=== PATIENT | male | born 1940 | race Caucasian/White ===

== ENCOUNTER 2016-12-29 08:26 | Observation (INO) | payer OTHER ==
[2016-12-29] VITALS (8 sets, daily range): BP systolic 112–172; BP diastolic 53–74; PULSE 51–54; TEMP 36.4–36.7; O2SAT 96–98; Ht 170.2 cm; Wt 93.0 kg
[~2016-12-29] VITALS: Ht 170.2 cm; Wt 93.0 kg
[~2016-12-29 08:26] MED LIST: ASPEC81 PO; CHOL100010 PO; CRD200 PO; CRD4 PO; FIBER PO; METO25TA3 PO; MULT-190 PO; NTRGSL/4 UT; PRLSR20 PO; RIVA1TAB4 PO; ROSU40TA PO; SAW160TA PO; STLS PO
--- NOTE | 2016-12-29 08:42 | EMERGENCY ROOM VISIT NOTE ---
History Report prepared by Jess: Lisa Guerra Under the Supervision of: Dr. Jack Drake M.D. First contact with patient: 08:29 Stated Complaint: CHEST PAIN History of Present Illness The patient is a 76 year old male who presents to the Emergency Room via ambulance with complaints of an episode of chest discomfort that began this morning around 0600. The pain did not radiate. Nothing seemed to make it better or worse. He took his blood pressure and his systolic reached up to 206. He also complains of feeling generally weak. He did not feel his heart racing. En route to the emergency room, he was given aspirin and Nitro. Currently, he does not have any pain. He feels that the Nitro may have improved his pain. He states that he was exerting himself yesterday and did not notice any chest pain or unusual symptoms. The patient has a history of a cardiac stent. His symptoms at that time included decreased energy. His symptoms did not feel the same as today. He is not on a blood thinner. He has a history of a-fib but does not feel like he was in an irregular rhythm today. He denies any recent blood loss. Denies lightheadedness, dizziness, shortness of breath, cough, nausea, vomiting , diarrhea, abdominal pain, or other complaints. He does not have a personal history of blood clots. Source of History: patient Onset: this morning around 0600 Position: chest Timing: other (episode) Modifying Factors (Relieving): other (Nitro) Associated Symptoms: + weakness, No SOB, No abdominal pain, No cough, No diarrhea, No nausea, No vomiting Review of Systems See HPI for pertinent positives & negatives. A total of 10 systems reviewed and were otherwise negative. Past Medical & Surgical Medical Problems: (1) BENIGN HYPERTENSION (2) Chest discomfort (3) CORONARY ATHEROSCLEROSIS OF [place] CORONARY VESSEL (4) COUGH (5) DIVERTICULOSIS COLON (W/O MENT OF HEMORRHAGE) (6) ESOPHAGEAL REFLUX (7) HISTORY OF TOBACCO USE (8) HYPERLIPIDEMIA NEC/NOS (9) HYPERTROPHY (BENIGN) OF PROSTATE W/O URINARY OBST & OTH LUTS (10) PROSTATITIS NOS (11) Status post insertion of drug-eluting stent into left anterior descending ( LAD) artery (12) Substernal discomfort (13) UMBILICAL HERNIA (14) UNILAT INGUINAL HERNIA Old medical records were reviewed. Nurse's notes were reviewed and I agree with. Family History Diabetes mellitus Social History Smoking Status: Former Smoker Alcohol Use: none Drug Use: none Marital Status: Housing Status: lives with significant other Occupation Status: retired Current/Historical Medications Scheduled Amiodarone HCl (Amiodarone HCl), 200 MG PO Q2D Aspirin (Aspirin), 81 MG PO HS Cholecalciferol (D 1000), 1,000 INTER.UNIT PO BID Doxazosin Mesylate (Doxazosin Mesylate), 4 MG PO DAILY Fiber Laxative (Fiber Laxative), 1 DOSE PO qam/pm Nitroglycerin (Nitrostat), 0.4 MG UT PRN Ocuvite Preservision (Ocuvite Preservision), 1 TAB PO DAILY Omeprazole (Prilosec), 20 MG PO DAILY Rosuvastatin Calcium (Crestor), 20 MG PO Q2D Saw [place] (Serenoa Repens) (Saw [place]), 160 MG PO HS Sennosides-Docusate Sodium (Stool Softener), 1 TAB PO BID Allergies Coded Allergies: Sulfa Antibiotics (Verified Allergy, Intermediate, RASH, 12/29/16) Sulfamethoxazole w/Trimethoprim (Verified Allergy, Intermediate, RASH, ) Azithromycin (Verified Adverse Reaction, Mild, UPSET STOMACH, 12/29/16) Rivaroxaban (Verified Adverse Reaction, Mild, SHORTNESS OF BREATH, 12/29/16 ) dizziness Physical Exam Vital Signs Date Time Temp Pulse Resp B/P Pulse Ox O2 Delivery O2 Flow Rate FiO2 12/29/16 12:00 52 20 170/91 95 Room Air 12/29/16 10:10 46 16 159/74 95 Room Air 12/29/16 09:21 49 12/29/16 09:13 49 16 145/83 95 Room Air 12/29/16 08:26 99 Room Air 12/29/16 08:26 36.5 62 14 166/79 99 Room Air 12/29/16 08:26 99 Room Air Physical Exam General: Non-ill appearing older male. Well developed well nourished in no acute distress, breathing comfortably on room air. Normal speech HEENT: Normal cephalic atraumatic. Pupils are equal round and reactive to light. Extraocular movements are intact. Oropharynx is pink with moist mucous membranes. No swelling of the mouth lips or tongue. Neck: Supple with a midline trachea. No meningeal signs or stiffness, no JVD or bruits. No Stridor. Chest: Clear to auscultation bilaterally. No wheezes or rhonchi. No increased work of breathing. Heart: regular rate and rhythm. Abdomen: Soft nontender, nondistended without rebound guarding or rigidity. Extremities: No cyanosis clubbing or edema. No calf tenderness or assymetry Spine/Back. Non tender to palpation. No CVA tenderness Skin: Good turgor without rashes. Neurologic exam: Cranial nerves two through 12 are intact. Motor and sensation are intact and symmetrical throughout. Medical Decision & Procedures ER Provider Diagnostic Interpretation: Radiology results as stated below per my review and radiologist interpretation: CHEST ONE VIEW PORTABLE CLINICAL HISTORY: Atypical chest pain COMPARISON STUDY: 08/16/2015 FINDINGS: The cardiac and mediastinal contours are normal. There is no evidence of focal pulmonary consolidation. There is no evidence of failure. No pleural effusions are visualized.[ IMPRESSION: No active disease in the chest. Electronically signed by: Waqas Pedraza M.D. 12/29/2016 8:55 AM Dictated Date/Time: 12/29/2016 8:54 AM Laboratory Results 12/29/16 09:00 Red Blood Count 4.36, Mean Corpuscular Volume 89.0, Mean Corpuscular Hemoglobin 30.3, Mean Corpuscular Hemoglobin Concent 34.0, Mean Platelet Volume 10.3, Neutrophils (%) (Auto) 75.8, Lymphocytes (%) (Auto) 15.8, Monocytes (%) (Auto) 5.1, Eosinophils (%) (Auto) 2.5, Basophils (%) (Auto) 0.4, Neutrophils # (Auto) 4.17, Lymphocytes # (Auto) 0.87, Monocytes # (Auto) 0.28, Eosinophils # (Auto) 0.14, Basophils # (Auto) 0.02 12/29/16 09:00 Test 12/29/16 09:00 12/29/16 09:10 White Blood Count 5.50 K/uL (4.8-10.8) Red Blood Count 4.36 M/uL (4.7-6.1) Hemoglobin 13.2 g/dL (14.0-18.0) Hematocrit 38.8 % (42-52) Mean Corpuscular Volume 89.0 fL (80-100) Mean Corpuscular Hemoglobin 30.3 pg (25-34) Mean Corpuscular Hemoglobin Concent 34.0 g/dl (32-36) Platelet Count 184 K/uL (130-400) Mean Platelet Volume 10.3 fL (7.4-10.4) Neutrophils (%) (Auto) 75.8 % Lymphocytes (%) (Auto) 15.8 % Monocytes (%) (Auto) 5.1 % Eosinophils (%) (Auto) 2.5 % Basophils (%) (Auto) 0.4 % Neutrophils # (Auto) 4.17 K/uL (1.4-6.5) Lymphocytes # (Auto) 0.87 K/uL (1.2-3.4) Monocytes # (Auto) 0.28 K/uL (0.11-0.59) Eosinophils # (Auto) 0.14 K/uL (0-0.5) Basophils # (Auto) 0.02 K/uL (0-0.2) RDW Standard Deviation 46.1 fL (36.4-46.3) RDW Coefficient of Variation 14.1 % (11.5-14.5) Immature Granulocyte % (Auto) 0.4 % Immature Granulocyte # (Auto) 0.02 K/uL (0.00-0.02) Prothrombin Time 10.8 SECONDS (9.0-12.0) Prothromb Time International Ratio 1.0 (0.9-1.1) Activated Partial Thromboplast Time 28.9 SECONDS (21.0-31.0) Partial Thromboplastin Ratio 1.1 Anion Gap 5.0 mmol/L (3-11) Est Creatinine Clear Calc Drug Dose 58.2 ml/min Estimated GFR () 75.2 Estimated GFR (Non- 64.9 BUN/Creatinine Ratio 18.6 (10-20) Calcium Level 8.1 mg/dl (8.5-10.1) Total Bilirubin 0.3 mg/dl (0.2-1) Direct Bilirubin < 0.1 mg/dl (0-0.2) Aspartate Amino Transf (AST/SGOT) 12 U/L (15-37) Alanine Aminotransferase (ALT/SGPT) 24 U/L (12-78) Alkaline Phosphatase 60 U/L (45-117) Total Creatine Kinase 185 U/L (39-308) Creatine Kinase MB 3.2 ng/ml (0.5-3.6) Creatine Kinase MB Ratio 1.7 (0-3.0) Total Protein 6.6 gm/dl (6.4-8.2) Albumin 3.5 gm/dl (3.4-5.0) Lipase 163 U/L (73-393) Bedside Troponin I 0.000 ng/ml (0-0.045) Laboratory studies as stated above per my review. ECG Indication: chest pain Rate (beats per minute): 57 Rhythm: sinus bradycardia Findings: no acute ischemic change, no ectopy Comparison ECG Date: 08/16/15 Change: no significant change ED Course 0831: Past medical records reviewed. The patient was evaluated in room B11, and a complete history and physical examination were performed. 1038: Upon reevaluation, the patient is resting comfortably. I discussed the results and treatment plan with the patient. He verbalized agreement of the treatment plan. The patient will be evaluated for further management. 1102: I discussed the case with Dr. Bill PUGH Hospitalist. The patient will be evaluated for further management. Medical Decision Differentials include acute coronary syndrome, arrhythmia, CHF, electrolyte or metabolic abnormality. This patient comes in as described above. He was placed in room B 11. He has a history cardiac disease. He has had some vague cardiac type symptoms. IV access established EKG was obtained multiple blood testing was obtained. EKG does not show any definite ischemic changes or ectopy. He has received aspirin and nitroglycerin prior to arrival. He was reassessed frequently. He remained pain-free while he was in the emergency department. His EKG does not suggest acute coronary syndrome or arrhythmia. Initial cardiac enzymes are normal. Chest x-ray does not show just heart failure pneumonia or pneumothorax. He has no acute electrode or metabolic abnormalities. Given his cardiac history with having a stent in the and having some chest pain that was relieved by nitroglycerin, I do think he needs to be admitted to rule out acute coronary event. I did consult the [facility] hospitalist group. They saw on the ER will admit him for these measures. Consults Time Called: 1043 Consulting Physician: Dr. Bill PUGH Hospitalist Returned Call: 1102 I discussed the case with him. The patient will be evaluated for further management. Impression Primary Impression: Precordial chest pain Additional Impression: Unstable angina Scribe Attestation The scribe's documentation has been prepared under my direction and personally reviewed by me in its entirety. I confirm that the note above accurately reflects all work, treatment, procedures, and medical decision making performed by me. Departure Information Dispostion Being Evaluated By Hospitalist Referrals Yuliya Washington, BharathiN.P (PCP) Problem Qualifiers
--- NOTE | 2016-12-29 08:57 | DIAGNOSTIC IMAGING REPORT ---
CHEST ONE VIEW PORTABLE CLINICAL HISTORY: Atypical chest pain COMPARISON STUDY: 08/16/2015 FINDINGS: The cardiac and mediastinal contours are normal. There is no evidence of focal pulmonary consolidation. There is no evidence of failure. No pleural effusions are visualized.[ IMPRESSION: No active disease in the chest. Electronically signed by: Waqas Pedraza M.D. 12/29/2016 8:55 AM Dictated Date/Time: 12/29/2016 8:54 AM
[2016-12-29 09:20] LABS: BASO % 0.4 %; BASO ABS # 0.02 K/uL (0-0.2); COMPLETE YES; EOS % 2.5 %; HEMATOCRIT 38.8 % (42-52); IG% 0.4 %; LYMPH % 15.8 %; LYMPH ABS # 0.87 K/uL (1.2-3.4); MEAN CORPUSCULAR HEMOGLOBIN 30.3 pg (25-34); MEAN PLATELET VOLUME 10.3 fL (7.4-10.4); MONO % 5.1 %; NEUT % 75.8 %; PLATELET COUNT 184 K/uL (130-400); RED BLOOD COUNT 4.36 M/uL (4.7-6.1)
[2016-12-29] MEDS ORDERED: CHOL100041 PO (09:23)
[2016-12-29] MEDS ORDERED: DOXA1TAB86 PO (09:23)
[2016-12-29] MEDS ORDERED: ASPI-461 PO (09:23)
[2016-12-29] MEDS ORDERED: SENNTAB23 PO (09:23)
[2016-12-29 09:31] LABS: PARTIAL THROMBOPLASTIN RATIO 1.1; PROTHROMBIN TIME (PATIENT) 10.8 SECONDS (9.0-12.0)
[2016-12-29 09:44] LABS: BLOOD UREA NITROGEN 20 mg/dl (7-18); BUN/CREATININE RATIO 18.6 (10-20); CALCIUM 8.1 mg/dl (8.5-10.1); CARBON DIOXIDE 31 mmol/L (21-32); CHLORIDE 108 mmol/L (98-107); GLUCOSE 119 mg/dl (70-99); SODIUM 144 mmol/L (136-145)
[2016-12-29 09:50] LABS: ALKALINE PHOSPHATASE 60 U/L (45-117); ALT/SGPT 24 U/L (12-78); AST/SGOT 12 U/L (15-37); CKMB/CK RATIO 1.7 (0-3.0)
[2016-12-29] MEDS: SODIUM CHLORIDE 0.9% 1000ML 1,000 ML IV SCH (11:33)
[2016-12-29] MEDS ORDERED: POLYETHYLENE (MIRALAX) 17 GM PACK PO PRN (11:45)
[2016-12-29] MEDS ORDERED: ONDANSETRON INJ 2 MG/ML 2 ML VIAL IV PRN (11:45)
[2016-12-29] MEDS ORDERED: ACETAMINOPHEN 325 MG TAB PO PRN (11:45)
[2016-12-29] MEDS ORDERED: NITROGLYCERIN 0.4 MG SL PER TAB CHARGE SL PRN (11:45)
--- NOTE | 2016-12-29 12:02 | History and Physical ---
History & Physical Date & Time of Service: Dec 29, 2016 at 11:42 Chief Complaint: Chest Pain Primary Care Physician: Deborah Mercer M.D. History of Present Illness Source: patient This is a 76 yo M with PMHx of hypertension, CAD, history of A. fib with RVR, hyperlipidemia, remote smoking history of 1ppd x 8 years, quit 50 years ago, diverticular disease, vitamin D deficiency, macular degeneration, BPH, GERD, umbilical hernia. The patient is status post drug-eluting stent which was placed in the left anterior descending artery in 2007 at [facility]. He previously had stress echocardiograms in 2011 in 2012 which were negative for ischemic changes. The patient presents this morning by himself with a substernal discomfort which began when he woke up at approximately 0500. He was driving a vehicle when he noticed it worsened, when he returned home at approximately 0700 he checked his blood pressure which was 204/78, HR= 58. On recheck 30 minutes later his blood pressure was 206/78, with HR= 73. His symptoms have not seemed to change in that period of time so he called EMS. The patient denies any changes in vision , hearing, shortness of breath, lightheadedness, dizziness. He does associate some nausea with the discomfort. When EMS arrived, he was administered 4 baby aspirin and one nitroglycerin tablet which relieved his symptoms and was brought to the ER. The patient is a fairly active person works at [employer] and was yesterday for several hours, he admits to poor water intake on a regular basis. The patient lives at home with his . He does not require any assistance with ambulation, he does report chronic R hip and knee pain but improves begins walking, and has never required supplemental O2. Past Medical/Surgical History Medical Problems: (1) BENIGN HYPERTENSION Status: Chronic (2) CORONARY ATHEROSCLEROSIS OF [place] CORONARY VESSEL Status: Chronic (3) COUGH Status: Chronic (4) DIVERTICULOSIS COLON (W/O MENT OF HEMORRHAGE) Status: Chronic (5) ESOPHAGEAL REFLUX Status: Chronic (6) HISTORY OF TOBACCO USE Status: Chronic (7) HYPERLIPIDEMIA NEC/NOS Status: Chronic (8) HYPERTROPHY (BENIGN) OF PROSTATE W/O URINARY OBST & OTH LUTS Status: Chronic (9) PROSTATITIS NOS Status: Chronic (10) UMBILICAL HERNIA Status: Chronic (11) UNILAT INGUINAL HERNIA Status: Chronic Family History Diabetes mellitus Social History Smoking Status: Former Smoker Smokeless Tobacco Use: No Alcohol Use: none Drug Use: none Marital Status: Housing status: lives with family Occupational Status: employed Immunizations History of Influenza Vaccine: No History of Tetanus Vaccine?: Yes Tetanus Immunization Date: Jun 08, 2011 History of Pneumococcal: Yes Pneumococcal Date: Jun 08, 2007 History of Hepatitis B Vaccine: No Multi-Drug Resistant Organisms History of MDRO: No Allergies Coded Allergies: Sulfamethoxazole w/Trimethoprim (Verified Allergy, Mild, RASH, 12/29/16) Sulfa Antibiotics (Unverified Allergy, Unknown, ., 12/29/16) Azithromycin (Verified Adverse Reaction, Mild, UPSET STOMACH, 12/29/16) Rivaroxaban (Verified Adverse Reaction, Mild, SHORTNESS OF BREATH, 12/29/16 ) dizziness Home Medications Scheduled Amiodarone HCl (Amiodarone HCl), 200 MG PO Q2D Aspirin (Aspirin), 81 MG PO HS Cholecalciferol (D 1000), 1,000 INTER.UNIT PO BID Doxazosin Mesylate (Doxazosin Mesylate), 4 MG PO DAILY Fiber Laxative (Fiber Laxative), 1 DOSE PO qam/pm Nitroglycerin (Nitrostat), 0.4 MG UT PRN Ocuvite Preservision (Ocuvite Preservision), 1 TAB PO DAILY Omeprazole (Prilosec), 20 MG PO DAILY Rosuvastatin Calcium (Crestor), 20 MG PO Q2D Saw Mercedes (Serenoa Repens) (Saw Mercedes), 160 MG PO HS Sennosides-Docusate Sodium (Stool Softener), 1 TAB PO BID Review of Systems Constitutional: No chills, No fatigue, No fever Eyes: No diplopia, No worsening of vision ENT: No hearing loss, No unusual epistaxis Respiratory: No cough, No dyspnea at rest, No dyspnea on exertion, No shortness of breath Cardiovascular: + chest pain, No orthopnea, No palpitations Abdomen: + nausea, No constipation, No diarrhea, No pain, No vomiting Musculoskeletal: + joint pain (R hip and bilateral knees), No calf pain, No swelling Genitourinary - Male: No dysuria, No hematuria Neurologic: No balance problems, No numbness/tingling Endocrine: No fatigue, No problem reported Integumentary: No itch, No rash Physical Exam Vital Signs Date Time Temp Pulse Resp B/P Pulse Ox O2 Delivery O2 Flow Rate FiO2 12/29/16 10:10 46 16 159/74 95 Room Air 12/29/16 09:21 49 12/29/16 09:13 49 16 145/83 95 Room Air 12/29/16 08:26 99 Room Air 12/29/16 08:26 36.5 62 14 166/79 99 Room Air 12/29/16 08:26 99 Room Air General Appearance: WD/WN, no apparent distress, + obese Head: normocephalic, atraumatic Eyes: PERRL, EOMI ENT: hearing grossly normal, pharynx normal Neck: supple, no JVD Respiratory/Chest: chest non-tender, lungs clear, no respiratory distress, no accessory muscle use Cardiovascular: regular rate, rhythm, no murmur, normal peripheral pulses, + bradycardia Abdomen/GI: normal bowel sounds, non tender, soft, + pertinent finding ( umbilical hernia) Back: normal inspection Extremities/Musculoskelatal: normal inspection, no calf tenderness, no pedal edema Neurologic/Psych: no motor/sensory deficits, normal mood/affect, oriented x 3 Skin: normal color, warm/dry Diagnostics Laboratory Results Results Past 24 Hours Test 12/29/16 08:39 12/29/16 09:00 12/29/16 09:10 Range/Units Creatine Kinase MB Ratio 1.7 0-3.0 White Blood Count 5.50 4.8-10.8 K/uL Red Blood Count 4.36 4.7-6.1 M/uL Hemoglobin 13.2 14.0-18.0 g/dL Hematocrit 38.8 42-52 % Mean Corpuscular Volume 89.0 80-100 fL Mean Corpuscular Hemoglobin 30.3 25-34 pg Mean Corpuscular Hemoglobin Concent 34.0 32-36 g/dl Platelet Count 184 130-400 K/uL Mean Platelet Volume 10.3 7.4-10.4 fL Neutrophils (%) (Auto) 75.8 % Lymphocytes (%) (Auto) 15.8 % Monocytes (%) (Auto) 5.1 % Eosinophils (%) (Auto) 2.5 % Basophils (%) (Auto) 0.4 % Neutrophils # (Auto) 4.17 1.4-6.5 K/uL Lymphocytes # (Auto) 0.87 1.2-3.4 K/uL Monocytes # (Auto) 0.28 0.11-0.59 K/uL Eosinophils # (Auto) 0.14 0-0.5 K/uL Basophils # (Auto) 0.02 0-0.2 K/uL RDW Standard Deviation 46.1 36.4-46.3 fL RDW Coefficient of Variation 14.1 11.5-14.5 % Immature Granulocyte % (Auto) 0.4 % Immature Granulocyte # (Auto) 0.02 0.00-0.02 K/uL Prothrombin Time 10.8 9.0-12.0 SECONDS Prothromb Time International Ratio 1.0 0.9-1.1 Activated Partial Thromboplast Time 28.9 21.0-31.0 SECONDS Partial Thromboplastin Ratio 1.1 Sodium Level 144 136-145 mmol/L Potassium Level 4.0 3.5-5.1 mmol/L Chloride Level 108 98-107 mmol/L Carbon Dioxide Level 31 21-32 mmol/L Anion Gap 5.0 3-11 mmol/L Blood Urea Nitrogen 20 7-18 mg/dl Creatinine 1.10 0.60-1.40 mg/dl Est Creatinine Clear Calc Drug Dose 58.2 ml/min Estimated GFR () 75.2 Estimated GFR (Non- 64.9 BUN/Creatinine Ratio 18.6 10-20 Random Glucose 119 70-99 mg/dl Calcium Level 8.1 8.5-10.1 mg/dl Total Bilirubin 0.3 0.2-1 mg/dl Direct Bilirubin < 0.1 0-0.2 mg/dl Aspartate Amino Transf (AST/SGOT) 12 15-37 U/L Alanine Aminotransferase (ALT/SGPT) 24 12-78 U/L Alkaline Phosphatase 60 45-117 U/L Total Creatine Kinase 185 39-308 U/L Creatine Kinase MB 3.2 0.5-3.6 ng/ml Total Protein 6.6 6.4-8.2 gm/dl Albumin 3.5 3.4-5.0 gm/dl Lipase 163 73-393 U/L Bedside Troponin I 0.000 0-0.045 ng/ml Diagnostic Radiology [~ rep ct add3]] CHEST ONE VIEW PORTABLE CLINICAL HISTORY: Atypical chest pain COMPARISON STUDY: 08/16/2015 FINDINGS: The cardiac and mediastinal contours are normal. There is no evidence of focal pulmonary consolidation. There is no evidence of failure. No pleural effusions are visualized.[ IMPRESSION: No active disease in the chest. EKG Vent. rate 57 BPM OH interval 182 ms QRS duration 90 ms QT/QTc 438/426 ms P-R-T axes 51 4 30 Sinus bradycardia, no signs of ST wave inversions or ischemic changes noted Impression Assessment and Plan This is a 76 yo M with PMHx of hypertension, CAD, history of A. fib with RVR, hyperlipidemia, remote smoking history of 1ppd x 8 years, quit 50 years ago, diverticular disease, vitamin D deficiency, macular degeneration, BPH, GERD, umbilical hernia. The patient is status post drug-eluting stent which was placed in the left anterior descending artery in 2007 at [facility]. He previously had stress echocardiograms in 2011 and 2012 which were negative for ischemic changes. Patient presents with chest discomfort for chest pain rule out. Chest discomfort History of hypertension History of A. fib with RVR CAD - Admit to telemetry for observation - Patient s/s ALONSO placement in the LAD in 2007. Last 2 stress echos were negative for ischemic changes in 2011 and 2012 - Initial set of troponin and CK-MB are negative, will trend 2 more sets - Ordered stress echocardiogram for tomorrow, NPO after midnight - Continue amiodarone 200 mg every other day, ASA 81 mg daily - Nitro 0.4 sl tab po prn, chest pain - AM EKG and when necessary chest pain - Check a lipid panel - Check hemoglobin A1c Macular degeneration -Continue PASSPORT SUPPORT MANAGER eyedrops BPH - Continue PASSPORT SUPPORT MANAGER Flomax, continue doxazosin 4 mg daily - Patient was taking saw palmetto as an outpatient, not currently on statin therapy GERD - We will change to Protonix 40 mg every morning from omeprazole DVT prophylaxis: Teds, SCDs, Lovenox 40 mg subq CODE STATUS: DO NOT RESUSCITATE Disposition: Patient from home, discharged likely after stress echocardiogram pending results Level of Care Telemetry Advanced Directives Existing Advance Directive: Yes Existing Living Will: Yes Existing Power of Technical Support Technician: Yes Existing Health Care Proxy: Yes Resuscitation Status DO NOT RESUSCITATE VTE Prophylaxis VTE Risk Assessment Done? Y/N: Yes Risk Level: Low Given or contraindicated: Enoxaparin (Lovenox)SQ, T.EYemi. Lida, SCD's
[2016-12-29] MEDS ORDERED: IV FLUIDS COMPLETED PRN (12:30)
[2016-12-29] MEDS ORDERED: LISINOPRIL 20 MG TAB PO ONE (13:15)
[2016-12-29] MEDS ORDERED: NURSING VERBAL MED ORDER ONE (13:30)
[2016-12-29] MEDS ORDERED: ENOXAPARIN 40 MG/0.4 ML SYR SC SCH (21:00)
[2016-12-29] MEDS: DOCUSATE SODIUM/SENNA 50/8.6MG TAB PO SCH (21:03)
[2016-12-29] MEDS: CHOLECALCIFEROL 1000 INTER.UNIT TAB PO SCH (21:04)
[2016-12-30] VITALS (8 sets, daily range): BP systolic 95–192; BP diastolic 57–92; PULSE 54–72; TEMP 36.4–36.8; O2SAT 93–98
[2016-12-30] MEDS: SODIUM CHLORIDE 0.9% 1000ML 1,000 ML IV SCH (01:39)
[2016-12-30 06:06] LABS: BASO % 0.3 %; BASO ABS # 0.03 K/uL (0-0.2); COMPLETE YES; EOS % 2.5 %; HEMATOCRIT 41.1 % (42-52); IG% 0.3 %; LYMPH % 18.9 %; LYMPH ABS # 1.75 K/uL (1.2-3.4); MEAN CELL VOLUME 90.1 fL (80-100); MEAN CORPUSCULAR HEMOGLOBIN 29.8 pg (25-34); MEAN CORPUSCULAR HGB CONC 33.1 g/dl (32-36); MEAN PLATELET VOLUME 10.9 fL (7.4-10.4); MONO % 7.9 %; NEUT % 70.1 %; PLATELET COUNT 221 K/uL (130-400); RED BLOOD COUNT 4.56 M/uL (4.7-6.1); WHITE BLOOD COUNT 9.28 K/uL (4.8-10.8)
[2016-12-30 06:34] LABS: BUN/CREATININE RATIO 15.3 (10-20); CALCIUM 8.4 mg/dl (8.5-10.1); CREATININE 1.2 mg/dl (0.60-1.40); POTASSIUM 3.9 mmol/L (3.5-5.1)
[2016-12-30 06:37] LABS: CHOLESTEROL/HDL RATIO 3.9
[2016-12-30 07:20] LABS: ESTIMATED AVERAGE GLUCOSE 123 mg/dl; HA1C FLAG Normal (Normal)
[2016-12-30] MEDS: CHOLECALCIFEROL 1000 INTER.UNIT TAB PO SCH (07:43)
[2016-12-30] MEDS: DOCUSATE SODIUM/SENNA 50/8.6MG TAB PO SCH (07:43)
--- NOTE | 2016-12-30 08:11 | Family Medicine Progress Note ---
Progress Note Date of Service Dec 30, 2016. Objective Vital Signs Date Time Temp Pulse Resp B/P Pulse Ox O2 Delivery O2 Flow Rate FiO2 12/30/16 07:41 36.4 54 20 174/79 94 12/30/16 04:46 36.6 54 22 176/77 97 Room Air 188/79 12/30/16 04:45 59 192/92 12/30/16 03:51 98 Room Air 12/30/16 00:00 98 Room Air 12/29/16 23:16 36.6 51 18 122/58 98 Room Air 12/29/16 20:00 98 Room Air 12/29/16 18:58 36.7 52 20 112/53 98 12/29/16 16:00 96 Room Air 12/29/16 15:54 36.5 54 20 146/67 96 12/29/16 13:12 36.4 53 16 172/74 98 Room Air 12/29/16 13:00 98 Room Air 12/29/16 13:00 36.4 53 18 172/74 98 Room Air 12/29/16 12:09 97 Room Air 12/29/16 12:00 52 20 170/91 95 Room Air 12/29/16 10:10 46 16 159/74 95 Room Air 12/29/16 09:21 49 12/29/16 09:13 49 16 145/83 95 Room Air 12/29/16 08:26 99 Room Air 12/29/16 08:26 36.5 62 14 166/79 99 Room Air 12/29/16 08:26 99 Room Air Resident Tracking Resident Involvement: Resident Care Provided Care Provided: Adult Hospital Medicine
[2016-12-30] MEDS ORDERED: AMLODIPINE BESYLATE 5 MG TAB PO STA (08:23)
[2016-12-30] MEDS ORDERED: DOXAZosin MESYLATE TAB 4 MG TAB PO SCH (09:00)
[2016-12-30] MEDS ORDERED: LISINOPRIL 20 MG TAB PO SCH (09:00)
[2016-12-30] MEDS ORDERED: CEROVITE ADV FORMULA TAB PO SCH ×2 (09:00)
[2016-12-30] MEDS ORDERED: ASPIRIN 81 MG ECTAB PO SCH (09:00)
[2016-12-30] MEDS ORDERED: AMIODARONE 200 MG TAB PO SCH (09:00)
[2016-12-30] MEDS ORDERED: PANTOprazole SOD 40 MG TAB PO SCH (09:00)
[2016-12-30] MEDS ORDERED: ROSUVASTATIN CALCIUM 20 MG TAB PO SCH (09:00)
--- NOTE | 2016-12-30 11:52 | EXERCISE STRESS ECHO ---
*NOTICE TO RECEIVING [employer] This information is strictly Confidential and protected under [place] law. [place] law prohibits you from making any further disclosure of this information unless further disclosure is expressly permitted by the written consent of the person to whom it pertains or is authorized by law. A general authorization for the release of medical or other information is not sufficient for this purpose. Hospital accepts no responsibility if the information is made available to any other person, INCLUDING THE PATIENT. Interpretation Summary * Name: JOLIE NI Study Date: 12/30/2016 08:49 AM BP: 134/72 mmHg * Patient Location: [facility]\S\N288\S\2 HR: 57 * : 1940 (M/d/yyyy) Gender: Male Height: 67 in * Age: 76 yrs Ethnicity: [place] Weight: 205 lb * Ordering Physician: Rika Hurd * Referring Physician: Self, Referred * Performed By: Kim Abdalla RCS * * Reason For Study: Chest Pain * BSA: 2.0 m2 * The ST segment changes following exercise are suggestive but not diagnostic of ischemia. * Mild concentric left ventricular hypertrophy. * Left ventricular diastolic dysfunction. * Mild left atrial dilatation. * Trace tricuspid and pulmonic regurgitation. * Mildly elevated estimated right ventricular systolic pressure. * Normal resting left ventricular systolic function and wall motion. * This was a normal stress echocardiogram. * The left ventricular ejection fraction increases normally with stress. The left ventricular end-systolic cavity size reduces post-stress (normal response). The left ventricular wall motion with stress is normal. * Exercise capacity is average. * -- Conclusions -- * Aortic valve sclerosis mild, without significant aortic valvular stenosis. Procedure Details * ECHOEX, CPT #[id number] * ECHO COLOR FLOW, CPT #[id number] * ECHO DOPPLER, CPT #[id number] Left Ventricle * The left ventricle is normal in size. * There is mild concentric left ventricular hypertrophy. * Ejection Fraction = 60-65%. * Left ventricular systolic function is normal. * A full diastolic examination was done with clinical findings of Class I diastolic dysfunction. * Resting wall motion: Normal. Stress wall motion: Appropriate increase in Left ventricular systolic function and decrease in cavity size. No stress induced segmental wall motion abnormalities. * The left ventricular ejection fraction increases normally with stress. The left ventricular end-systolic cavity size reduces post-stress (normal response). The left ventricular wall motion with stress is normal. * No regional wall motion abnormalities noted. Right Ventricle * The right ventricle is normal in size and function. * The right ventricular systolic function is normal as assessed by tricuspid annular plane systolic excursion (TAPSE) (normal >1.5 cm). Atria * The left atrium is mildly dilated. * Right atrial size is normal. * No ASD detected; PFO is not assessed. Mitral Valve * The mitral valve is normal. * There is no mitral valve stenosis. * There is no mitral regurgitation noted. Tricuspid Valve * The tricuspid valve is normal. * There is no tricuspid stenosis. * There is trace tricuspid regurgitation. * Right ventricular systolic pressure is elevated at 30-40mmHg. Aortic Valve * The aortic valve is trileaflet. * The aortic valve opens well. * Aortic valve sclerosis mild, without significant aortic valvular stenosis. * Aortic stenosis is absent. * No aortic regurgitation is present. Pulmonic Valve * The pulmonic valve leaflets are thin and pliable; valve motion is normal. * Pulmonic stenosis is absent. * Trace pulmonic valvular regurgitation. Great Vessels * The aortic root is normal size. Pericardium * There is no pericardial effusion. Stress Parameters * Sinus bradycardia * The baseline ECG displays normal ST segments. * 1.25 - 2.[address] depression * The stress portion of this study was personally supervised by the undersigned interpreting physician. * Rest heart rate was '57' BPM. * Rest blood pressure was '134/72' * Maximum heart rate achieved was 121 bpm. * Maximum heart rate was 84 % of maximum age-predicted heart rate. * Maximum blood pressure was '223/46' * Total exercise time was '6:10' * Maximum exercise MET level achieved was '7.2' METS * Maximum treadmill speed was '3.4' miles per hour. * Maximum treadmill elevation was '14'% grade. * Exercise was terminated due to 'fatigue' * The patient exhibited a hypertensive response with stress. * No chest pain during or following exercise. MMode 2D Measurements and Calculations IVSd 1.2 cm IVSs 1.2 cm LVIDd 3.9 cm LVIDs 2.5 cm LVPWd 1.2 cm LVPWs 1.3 cm IVS/LVPW 1.0 FS 35.1 % EDV(Teich) 66.0 ml ESV(Teich) 23.1 ml EF(Teich) 65.1 % EDV(cubed) 59.4 ml ESV(cubed) 16.2 ml EF(cubed) 72.7 % % IVS thick -1.63 % % LVPW thick 7.8 % LV mass(C)d 162.1 grams LV mass(C)dI 79.3 grams/m\S\2 LV mass(C)s 93.0 grams LV mass(C)sI 45.5 grams/m\S\2 CO(Teich) 2.5 l/min CI(Teich) 1.2 l/min/m\S\2 SV(Teich) 42.9 ml SI(Teich) 21.0 ml/m\S\2 CO(cubed) 2.5 l/min CI(cubed) 1.2 l/min/m\S\2 SV(cubed) 43.2 ml SI(cubed) 21.1 ml/m\S\2 Ao root diam 3.2 cm Ao root area 8.2 cm\S\2 ACS 1.4 cm LA dimension 4.3 cm LA/Ao 1.3 LVAd ap4 33.1 cm\S\2 LVLd ap4 8.5 cm EDV(MOD-sp4) 107.0 ml LVAs ap4 16.6 cm\S\2 LVLs ap4 6.8 cm ESV(MOD-sp4) 34.0 ml EF(MOD-sp4) 68.2 % LVAd ap2 33.6 cm\S\2 LVLd ap2 9.0 cm EDV(MOD-sp2) 104.0 ml LVAs ap2 16.1 cm\S\2 LVLs ap2 6.9 cm ESV(MOD-sp2) 32.0 ml EF(MOD-sp2) 69.2 % CO(MOD-sp4) 4.2 l/min CI(MOD-sp4) 2.1 l/min/m\S\2 SV(MOD-sp4) 73.0 ml SI(MOD-sp4) 35.7 ml/m\S\2 CO(MOD-sp2) 4.2 l/min CI(MOD-sp2) 2.0 l/min/m\S\2 SV(MOD-sp2) 72.0 ml SI(MOD-sp2) 35.2 ml/m\S\2 Doppler Measurements and Calculations MV E max jason 67.6 cm/sec MV A max jason 96.3 cm/sec MV E/A 0.70 MV P1/2t max jason 83.8 cm/sec MV P1/2t 68.3 msec MVA(P1/2t) 3.2 cm\S\2 MV dec slope 359.2 cm/sec\S\2 MV dec time 0.26 sec Ao V2 max 160.5 cm/sec Ao max PG 10.3 mmHg Ao max PG (full) 2.0 mmHg LV V1 max PG 8.3 mmHg LV V1 max 144.4 cm/sec PA V2 max 127.6 cm/sec PA max PG 6.5 mmHg PI max jason 180.3 cm/sec PI max PG 13.0 mmHg PI dec slope 125.1 cm/sec\S\2 PI P1/2t 422.0 msec TR max jason 279.9 cm/sec
[2016-12-30] MEDS ORDERED: LOSA50TA6 PO (13:09)
--- NOTE | 2016-12-30 13:13 | Discharge Instructions ---
Discharge Instructions Date of Service Dec 30, 2016. Admission Reason for Admission: Chest Discomfort Discharge Discharge Diagnosis / Problem: chest pain appearing non cardiac Discharge Goals Goal(s): Diagnostic testing Activity Recommendations Activity Limitations: resume your previous activity . Instructions / Follow-Up Instructions / Follow-Up have [place] draw labwork (BMP) next week to follow up on the new blood pressure meds (losartan) follow your blood pressure between daily and twice a day to follow how you adapt to the new med Current Hospital Diet Patient's current hospital diet: AHA Diet (Heart Healthy) Discharge Diet Recommended Diet: Regular Diet Pending Studies Studies pending at discharge: no Laboratory Results Hemoglobin A1c Test 12/30/16 05:18 Range/Units Estimated Average Glucose 123 mg/dl Hemoglobin A1c 5.9 H 4.5-5.6 % Lipid Panel Test 12/30/16 05:18 Range/Units Triglycerides Level 176 H 0-150 mg/dl Cholesterol Level 161 0-200 mg/dl HDL Cholesterol 41 mg/dl Cholesterol/HDL Ratio 3.9 LDL Cholesterol, Calculated 85 mg/dl Medical Emergencies . Who to Call and When: Medical Emergencies: If at any time you feel your situation is an emergency, please call 911 immediately. . Non-Emergent Contact Non-Emergency issues call your: Primary Care Provider . . "Provider Documentation" section prepared by Taye Ram. . VTE Core Measure Inpt VTE Proph given/why not?: Enoxaparin (Lovenox)LOLI TChandan Hilton, SCD's
--- NOTE | 2016-12-30 18:35 | Discharge Summary ---
Discharge Summary Date of Service Dec 30, 2016. Discharge Summary Admission Date: Dec 29, 2016 at 12:03 Discharge Date: Dec 30, 2016 Discharge Disposition: Home Principal Diagnosis: chest pain, possibly related to elevated BP Immunizations: Have You Had Influenza Vaccine: No History of Tetanus Vaccine?: Yes Tetanus Immunization Date: Jun 08, 2011 History of Pneumococcal: Yes Pneumococcal Date: Jun 08, 2007 History of Hepatitis B Vaccine: No Procedures: stress echo w nondiagnostic EKG and negative echo portion for ischemic changes serial cardiac enzymes negative Hemoglobin A1c Test 12/30/16 05:18 Range/Units Estimated Average Glucose 123 mg/dl Hemoglobin A1c 5.9 H 4.5-5.6 % Lipid Panel Test 12/30/16 05:18 Range/Units Triglycerides Level 176 H 0-150 mg/dl Cholesterol Level 161 0-200 mg/dl HDL Cholesterol 41 mg/dl Cholesterol/HDL Ratio 3.9 LDL Cholesterol, Calculated 85 mg/dl Medication Reconciliation New Medications: Losartan Potassium (Cozaar) 50 Mg Tab 1 TAB PO DAILY for 30 Days, #30 TAB 1 Refill Continued Medications: Amiodarone HCl (Amiodarone HCl) 200 Mg Tab 200 MG PO Q2D Aspirin (Aspirin) 81 Mg Tab 81 MG PO HS Cholecalciferol (D 1000) 1,000 Unit Cap 1000 INTER.UNIT PO BID Doxazosin Mesylate (Doxazosin Mesylate) 4 Mg Tab 4 MG PO DAILY Fiber Laxative (Fiber Laxative) Ea 1 DOSE PO qam/pm Nitroglycerin (Nitrostat) 0.4 Mg Tab 0.4 MG UT PRN, 0 Refills Ocuvite Preservision (Ocuvite Preservision) 1 Tab Tab 1 TAB PO DAILY, 0 Refills Omeprazole (Prilosec) 20 Mg Capcr 20 MG PO DAILY, CAP Rosuvastatin Calcium (Crestor) 40 Mg Tab 20 MG PO Q2D [place] ([place]) ([place]) 160 Mg Tab 160 MG PO HS Sennosides-Docusate Sodium (Stool Softener) 1 Tab Tab 1 TAB PO BID Hospital Course admitted w chest pain - cardiac enzymes negative, stress echo overall negative ( EKG nondiagnostic, echo portion negative) and stable for home - very desirous of going home. BP noted to be markedly elevated on admission - ?possibly this is cause of chest pain (making the main dx a mild hypertensive urgency). discussed meds - will start losartan as ordered (had been placed on lisinopril in hospital but then remembered getting a cough with a BP med years ago). stable for home - f/u PCP next week, ambulatory BP monitoring, BMP 1wk Total Time Spent: Less than 30 minutes This includes examination of the patient, discharge planning, medication reconciliation, and communication with other providers. Discharge Instructions Please refer to the electronic Patient Visit Report (Discharge Instructions) for additional information.
== END 2016-12-30 13:49 | disposition home or self-care (01) ==
LOC: ENRESERVDT → ENRESERVTM → EDBD 08:26 → C.EDB 08:28 → C.MED 12:03
PROVIDERS: ADMIT Internal Medicine; ATTEND Family Medicine
DX: R07.2 Precordial pain (principal); I25.700 Atherosclerosis of coronary artery bypass graft(s), unspecified, with unstable angina pectoris; I10 Essential (primary) hypertension; E78.5 Hyperlipidemia, unspecified; K21.9 Gastro-esophageal reflux disease without esophagitis; N40.0 Benign prostatic hyperplasia without lower urinary tract symptoms; Z87.891 Personal history of nicotine dependence; Z95.5 Presence of coronary angioplasty implant and graft; Z79.82 Long term (current) use of aspirin; Z79.899 Other long term (current) drug therapy; R05 Cough; K40.90 Unilateral inguinal hernia, without obstruction or gangrene, not specified as recurrent; K42.9 Umbilical hernia without obstruction or gangrene; H35.30 Unspecified macular degeneration; Z66 Do not resuscitate

== ENCOUNTER → 2017-01-05 | Outpatient (CLI) | payer OTHER ==
[~2017-01-05] MED LIST changes: -ASPEC81 PO; +ASPI-461 PO; -CHOL100010 PO; +CHOL100041 PO; -CRD4 PO; +DOXA1TAB86 PO; +LOSA50TA6 PO; -METO25TA3 PO; -RIVA1TAB4 PO; +SENNTAB23 PO; -STLS PO
[2017-01-05 12:35] LABS: ALT/SGPT 27 U/L (12-78); AST/SGOT 13 U/L (15-37); CHOLESTEROL 147 mg/dl (0-200); CHOLESTEROL/HDL RATIO 3.3; HDL CHOLESTEROL 45 mg/dl; TRIGLYCERIDES 102 mg/dl (0-150); VERY LOW DENSITY LIPOPROT CALC 20 mg/dl
== END | disposition home or self-care (01) ==
LOC: C.LABPVFM 07:11
PROVIDERS: ATTEND Physician Assistant Medical
DX: I25.10 Atherosclerotic heart disease of native coronary artery without angina pectoris (principal); I48.0 Paroxysmal atrial fibrillation

== ENCOUNTER → 2017-02-11 | Outpatient (CLI) | payer OTHER | END | disposition home or self-care (01) | LOC: C.LABPVFM 09:29 | PROVIDERS: ATTEND Urology | DX: N40.1 Benign prostatic hyperplasia with lower urinary tract symptoms (principal) ==

== ENCOUNTER → 2017-09-27 | Outpatient (CLI) | payer OTHER | END | disposition home or self-care (01) | LOC: C.LABPVFM 07:37 | PROVIDERS: ATTEND Internal Medicine Cardiovascular Disease | DX: I25.10 Atherosclerotic heart disease of native coronary artery without angina pectoris (principal) ==

== ENCOUNTER 2017-12-09 10:52 | Observation (INO) | payer OTHER ==
[2017-12-09] VITALS (7 sets, daily range): BP systolic 127–180; BP diastolic 63–84; PULSE 51–66; TEMP 36.4–36.7; O2SAT 94–97; Ht 170.2 cm; Wt 94.9 kg
[~2017-12-09] VITALS: Ht 170.2 cm; Wt 94.9 kg
[2017-12-09] MEDS ORDERED: ACET-1487 PO (11:23)
[2017-12-09] MEDS ORDERED: PRS5 PO (11:27)
[2017-12-09] MEDS ORDERED: MULT60CA PO (11:27)
[2017-12-09] MEDS ORDERED: LOSA100T65 PO (11:33)
[2017-12-09] MEDS ORDERED: ASPIRIN 324 MG CHEW PO STA (11:36)
--- NOTE | 2017-12-09 11:46 | DIAGNOSTIC IMAGING REPORT ---
CHEST ONE VIEW PORTABLE CLINICAL HISTORY: cp dyspnea COMPARISON STUDY: 12/29/2016 FINDINGS: The bones soft tissues and hemidiaphragms are normal. The cardiomediastinal silhouette is normal. The lungs are clear. The pulmonary vasculature is normal. IMPRESSION: Negative chest. The above report was generated using voice recognition software. It may contain grammatical, syntax or spelling errors. Electronically signed by: Torres Valdez M.D. 12/09/2017 11:45 AM Dictated Date/Time: 12/09/2017 11:45 AM
[2017-12-09 11:50] LABS: BASO % 0.3 %; BASO ABS # 0.02 K/uL (0-0.2); EOS % 1.8 %; EOS ABS # 0.12 K/uL (0-0.5); HEMATOCRIT 40.2 % (42-52); HEMOGLOBIN 13.8 g/dL (14.0-18.0); IG# 0.01 K/uL (0.00-0.02); LYMPH ABS # 1.36 K/uL (1.2-3.4); MEAN CELL VOLUME 88.4 fL (80-100); MEAN CORPUSCULAR HEMOGLOBIN 30.3 pg (25-34); MEAN CORPUSCULAR HGB CONC 34.3 g/dl (32-36); MEAN PLATELET VOLUME 10.6 fL (7.4-10.4); MONO % 6.5 %; MONO ABS # 0.44 K/uL (0.11-0.59); NEUT % 71.3 %; NEUT ABS # 4.85 K/uL (1.4-6.5); PLATELET COUNT 222 K/uL (130-400); RED CELL DISTRIBUTION WIDTH CV 14.3 % (11.5-14.5); RED CELL DISTRIBUTION WIDTH SD 46.2 fL (36.4-46.3)
[2017-12-09 11:57] LABS: CALCIUM 8.9 mg/dl (8.5-10.1); CREATININE 1.1 mg/dl (0.60-1.40)
[2017-12-09 12:00] LABS: PTT PATIENT 27.6 SECONDS (21.0-31.0)
[2017-12-09] MEDS ORDERED: POLYETHYLENE (MIRALAX) 17 GM PACK PO PRN (14:45)
[2017-12-09] MEDS ORDERED: ACETAMINOPHEN 325 MG TAB PO PRN (14:45)
[2017-12-09] MEDS ORDERED: ONDANSETRON INJ 2 MG/ML 2 ML VIAL IV PRN (14:45)
[2017-12-09] MEDS ORDERED: ALUMINUM/MAGNESIUM/SIMETH (MAALOX MAX) 30 ML UDC PO PRN (14:45)
[2017-12-09] MEDS ORDERED: MAGNESIUM HYDROXIDE SUSP 30 ML UDC PO PRN (14:45)
--- NOTE | 2017-12-09 15:09 | History and Physical ---
History & Physical Date & Time of Service: Dec 09, 2017 at 14:52 Chief Complaint: Chest Pain Primary Care Physician: Deborah Mercer M.D. History of Present Illness Source: patient, clinic records, hospital records This is a 77 y/o male with a history of CAD s/p stent (2007), HTN, HLD, paroxysmal a-fib, BPH and GERD who presented to the ED on 12/09 with chest discomfort. The patient states he was driving in his car for an hour this morning when he developed central chest tightness and back pain. He describes the discomfort as a 3/10. He denies any radiation of the pain or associated symptoms. He states his pain is now resolved. He does have a history of CAD and had one stent placed in 2007 following a diagnostic cath. He denies any history of HI. The patient denies fevers, chills, sweats, palpitations, claudication, cough, wheezing, shortness of breath, nausea, vomiting, abdominal pain, dysuria, hematuria, urinary retention, paralysis, weakness, numbness and tingling. 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 LUTS (16) Precordial chest pain (17) PROSTATITIS NOS (18) Status post insertion of drug-eluting stent into left anterior descending ( LAD) artery (19) Substernal discomfort (20) UMBILICAL HERNIA (21) UNILAT INGUINAL HERNIA (22) Unstable angina BPH GERD Family History COPD (chronic obstructive pulmonary disease) Cancer (breast) Diabetes mellitus Heart disease Social History Smoking Status: Former Smoker (quit 1966) Smokeless Tobacco Use: No Alcohol Use: none Drug Use: none Marital Status: Housing status: lives with significant other Occupational Status: employed Immunizations History of Influenza Vaccine: No History of Tetanus Vaccine?: Yes Tetanus Immunization Date: Jun 08, 2011 History of Pneumococcal: Yes Pneumococcal Date: Jun 08, 2007 History of Hepatitis B Vaccine: No Allergies Coded Allergies: Sulfa Antibiotics (Verified Allergy, Intermediate, RASH, 12/09/17) Sulfamethoxazole w/Trimethoprim (Verified Allergy, Intermediate, RASH, ) Azithromycin (Verified Adverse Reaction, Mild, UPSET STOMACH, 12/09/17) Rivaroxaban (Verified Adverse Reaction, Mild, SHORTNESS OF BREATH, 12/09/17 ) dizziness Home Medications Scheduled Amiodarone HCl (Amiodarone HCl), 200 MG PO Q2D Aspirin (Aspirin), 81 MG PO HS Cholecalciferol (D 1000), 1,000 INTER.UNIT PO BID Doxazosin Mesylate (Doxazosin Mesylate), 4 MG PO HS Fiber Laxative (Fiber Laxative), 1 DOSE PO qam/pm Finasteride (Finasteride), 5 MG PO HS Losartan Potassium (Cozaar), 1 TAB PO HS Multiple Vitamins W/ Minerals (Preservision Areds 2), 1 TAB PO BID Nitroglycerin (Nitrostat), 0.4 MG UT PRN Omeprazole (Prilosec), 20 MG PO QAM Rosuvastatin Calcium (Crestor), 20 MG PO Q2D Sennosides-Docusate Sodium (Stool Softener), 1 TAB PO BID Scheduled PRN Acetaminophen (Tylenol Arthritis Ext Rel), 650 MG PO Q8H PRN for Pain Review of Systems Constitutional: No fever, No chills, No sweats Eyes: No worsening of vision, No eye pain, No diplopia ENT: No hearing loss, No nasal symptoms, No trouble swallowing Respiratory: No cough, No wheezing, No shortness of breath Cardiovascular: +Chest pain. No claudication, No palpitations Abdomen: No pain, No nausea, No vomiting Musculoskeletal: +Back pain. No muscle pain, No swelling Genitourinary - Male: No dysuria, No urinary retention, No hematuria Neurologic: No paralysis, No weakness, No numbness/tingling Integumentary: No rash, No itch, No color change Physical Exam Vital Signs Date Time Temp Pulse Resp B/P (MAP) Pulse Ox O2 Delivery O2 Flow Rate FiO2 12/09/17 13:45 64 18 155/77 98 Room Air 12/09/17 13:17 48 12/09/17 12:52 96 Room Air 12/09/17 11:12 59 12/09/17 10:57 36.8 78 20 184/75 96 Room Air General appearance: +Obese. Well-developed, well-nourished, no apparent distress Head: Normocephalic, atraumatic Eyes: Normal inspection, PERRL, EOMI ENT: Normal ENT inspection, hearing grossly normal, pharynx normal Neck: Supple, no JVD, trachea midline Respiratory/Chest: Lungs clear to auscultation, normal breath sounds, no respiratory distress Cardiovascular: +Systolic murmur. Regular rate & rhythm, no gallop Abdomen/GI: Normal bowel sounds, non-tender, soft Extremities/Musculoskeletal: Normal inspection, no calf tenderness, no pedal edema Neurological/Psych: Alert, normal mood/affect, oriented x 3 Skin: Normal color, warm/dry, no rash Diagnostics Laboratory Results Results Past 24 Hours Test 12/09/17 11:10 12/09/17 11:43 Range/Units White Blood Count 6.80 4.8-10.8 K/uL Red Blood Count 4.55 4.7-6.1 M/uL Hemoglobin 13.8 14.0-18.0 g/dL Hematocrit 40.2 42-52 % Mean Corpuscular Volume 88.4 80-100 fL Mean Corpuscular Hemoglobin 30.3 25-34 pg Mean Corpuscular Hemoglobin Concent 34.3 32-36 g/dl Platelet Count 222 130-400 K/uL Mean Platelet Volume 10.6 7.4-10.4 fL Neutrophils (%) (Auto) 71.3 % Lymphocytes (%) (Auto) 20.0 % Monocytes (%) (Auto) 6.5 % Eosinophils (%) (Auto) 1.8 % Basophils (%) (Auto) 0.3 % Neutrophils # (Auto) 4.85 1.4-6.5 K/uL Lymphocytes # (Auto) 1.36 1.2-3.4 K/uL Monocytes # (Auto) 0.44 0.11-0.59 K/uL Eosinophils # (Auto) 0.12 0-0.5 K/uL Basophils # (Auto) 0.02 0-0.2 K/uL RDW Standard Deviation 46.2 36.4-46.3 fL RDW Coefficient of Variation 14.3 11.5-14.5 % Immature Granulocyte % (Auto) 0.1 % Immature Granulocyte # (Auto) 0.01 0.00-0.02 K/uL Prothrombin Time 10.3 9.0-12.0 SECONDS Prothromb Time International Ratio 1.0 0.9-1.1 Activated Partial Thromboplast Time 27.6 21.0-31.0 SECONDS Partial Thromboplastin Ratio 1.1 Sodium Level 140 136-145 mmol/L Potassium Level 4.0 3.5-5.1 mmol/L Chloride Level 109 98-107 mmol/L Carbon Dioxide Level 26 21-32 mmol/L Anion Gap 5.0 3-11 mmol/L Blood Urea Nitrogen 21 7-18 mg/dl Creatinine 1.10 0.60-1.40 mg/dl Est Creatinine Clear Calc Drug Dose 62.6 ml/min Estimated GFR () 74.7 Estimated GFR (Non- 64.4 BUN/Creatinine Ratio 18.7 10-20 Random Glucose 102 70-99 mg/dl Calcium Level 8.9 8.5-10.1 mg/dl Bedside Troponin I < 0.030 0-0.045 ng/ml Diagnostic Radiology Reviewed the following studies and agree with interpretation as follows: CHEST ONE VIEW PORTABLE CLINICAL HISTORY: cp dyspnea COMPARISON STUDY: 12/29/2016 FINDINGS: The bones soft tissues and hemidiaphragms are normal. The cardiomediastinal silhouette is normal. The lungs are clear. The pulmonary vasculature is normal. IMPRESSION: Negative chest. EKG Reviewed EKG and agree with interpretation as follows: 70 bpm, NSR Impression Assessment and Plan 77 y/o male with a history of CAD s/p stent (2007), HTN, HLD, paroxysmal a-fib, BPH and GERD who presented to the ED on 12/09 with chest discomfort. The patient is afebrile, VSS on arrival. CXR no acute disease, EKG no ischemic changes. Troponin negative. Labs grossly unremarkable. Pt received full dose aspirin in ED. Chest pain, ACS r/o -Admit to telemetry for observation -Trend cardiac enzymes q8h x 2, first troponin negative -Stress echo in am if negative -EKG q am and prn chest pain -Continue ASA, statin -Lipid panel in Sep 2017 WNL, will not repeat -H/o prediabetes, will check HgbA1c to further assess risk CAD s/p stent, HTN, HLD, paroxysmal a-fib--stable, NSR -Continue ASA, losartan 100 mg PO hs, Crestor 20 mg PO q2d, amiodarone 200 mg PO q2d BPH -Continue Proscar 5 mg PO qd, doxazosin 4 mg PO hs GERD -Convert Prilosec to Protonix DVT prophylaxis -Enoxaparin 40 mg SC q24h -KYM hose and SCDs Code Status -Level I, FULL RESUSCITATION STATUS ATTENDING PHYSICIAN ATTESTATION Patient seen and evaluated by both Abby Mojica PA-C and Andres Leyva MD. Payal is 77/M with known Hx of CAD s/p PCI x1 (unknown vessel) back in 2007. He is being admitted for chest pain rule out ACS. He has cardiovascular risk factors which include hyperlipidemia and hypertension. VS are stable and BP is moderately controlled with systolic in the 160s. We'll continue to monitor and make any appropriate adjustments. Patient is currently asymptomatic. Physical examination performed at bedside overall benign. First set of troponins are negative. Stress Echo and repeat EKG to be done in the morning. Admit to telemetry Advanced Directives Existing Living Will: Yes Existing Power of Death Clearance Coordinator: Yes (SHAQUILLE DALLASR ) Resuscitation Status VTE Prophylaxis Will order VTE Prophylaxis: Yes
--- NOTE | 2017-12-09 15:58 | EMERGENCY ROOM VISIT NOTE ---
History Report prepared by Jess: Nahum Diaz Under the Supervision of: Dr. Bill Cordero M.D. First contact with patient: 11:27 Chief Complaint: CHEST PAIN Stated Complaint: CHEST PAIN Nursing Triage Summary: Pain between shoulder blades and mid chest. Pain does not radiate. Patient ambulatory to triage. History of Present Illness The patient is a 77 year old male who presents to the Emergency Room with complaints of chest pain beginning 5.5 hours ago. His pain began while driving. He also complains of back pain between his shoulder blades. The patient denies pain radiation. He describes his pain as a "tightness". He also complains of some neck pain as well. The patient states that his pain has improved since it began. He currently has no pain. The patient denies SOB, lightheadedness, leg swelling, or diaphoresis. He has a cardiac stent in place (2007). He is unsure if his symptoms feel similar to when he had his stent placed. Currently he is asymptomatic. Source of History: patient Onset: 5.5 hours ago Position: chest Quality: other (Tightness) Timing: resolved Associated Symptoms: + neck pain, + back pain (between shoulder blades), No diaphoresis, No SOB Note: Negative: lightheadedness, leg swelling. Review of Systems See HPI for pertinent positives & negatives. A total of 10 systems reviewed and were otherwise negative. Past Medical & Surgical Medical Problems: (1) BENIGN HYPERTENSION (2) Chest discomfort (3) CORONARY ATHEROSCLEROSIS OF [place] CORONARY VESSEL (4) COUGH (5) DIVERTICULOSIS COLON (W/O MENT OF HEMORRHAGE) (6) ESOPHAGEAL REFLUX (7) HISTORY OF TOBACCO USE (8) HYPERLIPIDEMIA NEC/NOS (9) HYPERTROPHY (BENIGN) OF PROSTATE W/O URINARY OBST & OTH LUTS (10) PROSTATITIS NOS (11) Status post insertion of drug-eluting stent into left anterior descending ( LAD) artery (12) Substernal discomfort (13) UMBILICAL HERNIA (14) UNILAT INGUINAL HERNIA Family History Diabetes mellitus Social History Smoking Status: Former Smoker Alcohol Use: none Drug Use: none Marital Status: Housing Status: lives with significant other Occupation Status: employed Current/Historical Medications Scheduled Amiodarone HCl (Amiodarone HCl), 200 MG PO Q2D Aspirin (Aspirin), 81 MG PO HS Cholecalciferol (D 1000), 1,000 INTER.UNIT PO BID Doxazosin Mesylate (Doxazosin Mesylate), 4 MG PO HS Fiber Laxative (Fiber Laxative), 1 DOSE PO qam/pm Finasteride (Finasteride), 5 MG PO HS Losartan Potassium (Cozaar), 1 TAB PO HS Multiple Vitamins W/ Minerals (Preservision Areds 2), 1 TAB PO BID Nitroglycerin (Nitrostat), 0.4 MG UT PRN Omeprazole (Prilosec), 20 MG PO QAM Rosuvastatin Calcium (Crestor), 20 MG PO Q2D Sennosides-Docusate Sodium (Stool Softener), 1 TAB PO BID Scheduled PRN Acetaminophen (Tylenol Arthritis Ext Rel), 650 MG PO Q8H PRN for Pain Allergies Coded Allergies: Sulfa Antibiotics (Verified Allergy, Intermediate, RASH, 12/09/17) Sulfamethoxazole w/Trimethoprim (Verified Allergy, Intermediate, RASH, ) Azithromycin (Verified Adverse Reaction, Mild, UPSET STOMACH, 12/09/17) Rivaroxaban (Verified Adverse Reaction, Mild, SHORTNESS OF BREATH, 12/09/17 ) dizziness Physical Exam Vital Signs Date Time Temp Pulse Resp B/P (MAP) Pulse Ox O2 Delivery O2 Flow Rate FiO2 12/09/17 15:03 61 18 161/88 97 Room Air 12/09/17 13:45 64 18 155/77 98 Room Air 12/09/17 13:17 48 12/09/17 12:52 96 Room Air 12/09/17 11:12 59 12/09/17 10:57 36.8 78 20 184/75 96 Room Air Physical Exam Constitutional: Vital signs reviewed. Eyes: Pupils are equal round reactive to light. Conjunctiva are noninjected. ENT: Pharynx is clear without erythema or exudate. Mucous membranes are moist. Neck supple without meningeal signs. Respiratory: Clear to auscultation bilaterally. Breath sounds are equal bilaterally. Cardiovascular: Regular rate and rhythm. No rubs or gallops. GI: Soft, nondistended and nontender. Bowel sounds are present. Musculoskeletal: No peripheral edema. No lower extremity tenderness. Integumentary: No cyanosis. Neurological: The patient is awake and alert. No focal deficits. Psychiatric: Normal affect. Medical Decision & Procedures ER Provider Diagnostic Interpretation: Radiology results as stated below per my review and the radiologist's interpretation: CHEST ONE VIEW PORTABLE FINDINGS: The bones soft tissues and hemidiaphragms are normal. The cardiomediastinal silhouette is normal. The lungs are clear. The pulmonary vasculature is normal. IMPRESSION: Negative chest. The above report was generated using voice recognition software. It may contain grammatical, syntax or spelling errors. Electronically signed by: Torres Valdez M.D. 12/09/2017 11:45 AM Laboratory Results 12/09/17 11:10 Red Blood Count 4.55, Mean Corpuscular Volume 88.4, Mean Corpuscular Hemoglobin 30.3, Mean Corpuscular Hemoglobin Concent 34.3, Mean Platelet Volume 10.6, Neutrophils (%) (Auto) 71.3, Lymphocytes (%) (Auto) 20.0, Monocytes (%) (Auto) 6.5, Eosinophils (%) (Auto) 1.8, Basophils (%) (Auto) 0.3, Neutrophils # (Auto) 4.85, Lymphocytes # (Auto) 1.36, Monocytes # (Auto) 0.44, Eosinophils # (Auto) 0.12, Basophils # (Auto) 0.02 12/09/17 11:10 Test 12/09/17 11:10 12/09/17 11:43 White Blood Count 6.80 K/uL (4.8-10.8) Red Blood Count 4.55 M/uL (4.7-6.1) Hemoglobin 13.8 g/dL (14.0-18.0) Hematocrit 40.2 % (42-52) Mean Corpuscular Volume 88.4 fL (80-100) Mean Corpuscular Hemoglobin 30.3 pg (25-34) Mean Corpuscular Hemoglobin Concent 34.3 g/dl (32-36) Platelet Count 222 K/uL (130-400) Mean Platelet Volume 10.6 fL (7.4-10.4) Neutrophils (%) (Auto) 71.3 % Lymphocytes (%) (Auto) 20.0 % Monocytes (%) (Auto) 6.5 % Eosinophils (%) (Auto) 1.8 % Basophils (%) (Auto) 0.3 % Neutrophils # (Auto) 4.85 K/uL (1.4-6.5) Lymphocytes # (Auto) 1.36 K/uL (1.2-3.4) Monocytes # (Auto) 0.44 K/uL (0.11-0.59) Eosinophils # (Auto) 0.12 K/uL (0-0.5) Basophils # (Auto) 0.02 K/uL (0-0.2) RDW Standard Deviation 46.2 fL (36.4-46.3) RDW Coefficient of Variation 14.3 % (11.5-14.5) Immature Granulocyte % (Auto) 0.1 % Immature Granulocyte # (Auto) 0.01 K/uL (0.00-0.02) Prothrombin Time 10.3 SECONDS (9.0-12.0) Prothromb Time International Ratio 1.0 (0.9-1.1) Activated Partial Thromboplast Time 27.6 SECONDS (21.0-31.0) Partial Thromboplastin Ratio 1.1 Anion Gap 5.0 mmol/L (3-11) Est Creatinine Clear Calc Drug Dose 62.6 ml/min Estimated GFR () 74.7 Estimated GFR (Non- 64.4 BUN/Creatinine Ratio 18.7 (10-20) Calcium Level 8.9 mg/dl (8.5-10.1) Bedside Troponin I < 0.030 ng/ml (0-0.045) Laboratory results as reviewed by me. Medications Administered Medications (Trade) Dose Ordered Sig/Jesus Route Start Time Stop Time Status Last Admin Dose Admin Aspirin (Aspirin Chew) 324 mg NOW STAT PO 12/09/17 11:36 12/09/17 11:37 DC 12/09/17 11:52 324 MG ECG Per My Interpretation Indication: chest pain Rate (beats per minute): 70 Rhythm: normal sinus Findings: other (Downsloping ST segments in leads 1-2, V3-V6. No PVCs. ) Comparison ECG Date: December 30, 2016 Change: no significant change ED Course 1129: The patient was evaluated in room B11B. A complete history and physical exam was performed. 1136: Ordered Aspirin Chew 324 mg PO. 1232: Upon reevaluation, the patient is resting comfortably. I discussed tonight 's findings with him. He verbalized agreement of the treatment plan. The patient will be evaluated for further management. Medical Decision This is a 77-year-old male who presents with chest pain. Differential diagnosis includes unstable angina, MS, pleurisy, GERD, pneumothorax. I did perform a limited focused review of portions of the patient's old chart on the electronic medical record. The patient was admitted in December 2016 for chest pain. He had a stress echocardiogram with a nondiagnostic ECG and a negative echocardiogram for ischemia. I did evaluate the patient as noted above. IV access was established. 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 I did order and personally review the patient's 12-lead EKG and chest x-ray as described above. The patient has some nonspecific ST changes as noted above. These seem to be present on his previous EKG when compared. I did order and review the patient' s blood work as noted in the electronic medical record. Troponin was negative. I did reassess the patient. He is not having any symptoms at this time. I did discuss the test results with the patient. Given his history of cardiac stent and his chest pain earlier today I did recommend hospitalization for repeat cardiac enzymes. I did discuss the case with the hospitalist and case assistant. Medication Reconcilliation Current Medication List: was personally reviewed by me Blood Pressure Screening Patient's blood pressure: Elevated blood pressure Blood pressure disposition: Referred to PCP Consults Time Called: 1232 [facility] Returned Call: [address] Doyle of [facility]. We discussed the patient and his results. The patient will be further evaluated by KEATON. Impression Primary Impression: Acute chest pain Scribe Attestation The scribe's documentation has been prepared under my direct and personally reviewed by me in its entirety. I confirm that the note above accurately reflects all work, treatment, procedures, and medical decision making performed by me. Departure Information Dispostion Being Evaluated By Hospitalist Referrals Deborah Mercer M.D. (PCP) Patient Instructions My [facility]
[2017-12-09] MEDS ORDERED: IV FLUIDS COMPLETED PRN (16:15)
[2017-12-09] MEDS ORDERED: ENOXAPARIN 40 MG/0.4 ML SYR SC SCH (17:00)
[2017-12-09] MEDS ORDERED: ASPIRIN 81 MG ECTAB PO SCH (21:00)
[2017-12-09] MEDS ORDERED: ROSUVASTATIN CALCIUM 20 MG TAB PO SCH (21:00)
[2017-12-09] MEDS ORDERED: LOSARTAN POTASSIUM 50 MG TAB PO SCH (21:00)
[2017-12-09] MEDS ORDERED: DOXAZosin MESYLATE TAB 4 MG TAB PO SCH (21:00)
[2017-12-09] MEDS ORDERED: FINASTERIDE 5 MG TAB PO SCH (21:00)
[2017-12-09] MEDS: DOCUSATE SODIUM/SENNA 50/8.6MG TAB PO SCH (21:28)
[2017-12-10 03:52] VITALS: BP 127/70; PULSE 52; TEMP 36.7; O2SAT 94
[2017-12-10 07:29] VITALS: BP 151/74; PULSE 54; TEMP 36.7; O2SAT 97
[2017-12-10] MEDS: DOCUSATE SODIUM/SENNA 50/8.6MG TAB PO SCH (08:03)
[2017-12-10] MEDS ORDERED: PANTOprazole SOD 40 MG TAB PO SCH (09:00)
--- NOTE | 2017-12-10 10:39 | Discharge Instructions ---
Discharge Instructions Date of Service Dec 10, 2017. Admission Reason for Admission: Chest Discomfort Discharge Discharge Diagnosis / Problem: Chest discomfort Discharge Goals Goal(s): Decrease discomfort, Improve function, Increase independence, Improve disease control Activity Recommendations Activity Limitations: resume your previous activity Lifting Limitations: no more than 25 pounds, gradually increase as tolerated Exercise/Sports Limitations: rest today, gradually increase as tolerated Shower/Bathe: no limitations Driving or Machine Use: After follow up with your PCP . Instructions / Follow-Up Instructions / Follow-Up You were admitted to [facility] with chest discomfort and diagnosed with musculoskeletal chest discomfort secondary to new exercise regimen. During your stay here you were treated with supportive care. Cardiac enzymes were negative, and you completed a treadmill stress test which was normal. You can use a heating pad to help relieve muscle tension. Do stretching techniques to help relieve tension between your shoulder blades. Medications: Continue taking your medications as prescribed. Appointments: Follow up with PCP within 1 week. Follow up with cardiology as already scheduled. Current Hospital Diet Patient's current hospital diet: AHA Diet (Heart Healthy) Discharge Diet Recommended Diet: AHA Diet (Heart Healthy) Pending Studies Studies pending at discharge: no Laboratory Results Hemoglobin A1c Test 12/09/17 11:10 Range/Units Estimated Average Glucose 126 mg/dl Hemoglobin A1c 6.0 H 4.5-5.6 % Lipid Panel Test 09/27/17 07:40 Range/Units Triglycerides Level 132 0-150 mg/dl Cholesterol Level 133 0-200 mg/dl HDL Cholesterol 44 mg/dl Cholesterol/HDL Ratio 3.0 LDL Cholesterol, Calculated 63 mg/dl Medical Emergencies . Who to Call and When: Medical Emergencies: If at any time you feel your situation is an emergency, please call 911 immediately. . Non-Emergent Contact Non-Emergency issues call your: Primary Care Provider Call Non-Emergent contact if: you have a fever, temperature is above 100.5, your pain is not controlled, your pain is worsening, your pain is unusual for you, your pain is concerning you, you have any medication questions other concerns with your health. Call 911 or go directly to the Emergency Department if you experience any of the following: Chest pain, chest tightness, shortness of breath, abdominal pain , lightheadedness, dizziness, gastrointestinal bleeding, or have any other concerns regarding your health. . Past History Medical & Surgical History: (1) Chest discomfort (2) BENIGN HYPERTENSION (3) CORONARY ATHEROSCLEROSIS OF [place] CORONARY VESSEL (4) HISTORY OF TOBACCO USE (5) HYPERLIPIDEMIA NEC/NOS (6) Atrial fibrillation with RVR (7) ESOPHAGEAL REFLUX . "Provider Documentation" section prepared by Nicolasa Hurd. . [place] Drug Monitoring Program Search Results: no issues identified
--- NOTE | 2017-12-10 11:01 | EXERCISE STRESS ECHO ---
*NOTICE TO RECEIVING DEMOCRAT AGENCY This information is strictly Confidential and protected under [place] law. [place] law prohibits you from making any further disclosure of this information unless further disclosure is expressly permitted by the written consent of the person to whom it pertains or is authorized by law. A general authorization for the release of medical or other information is not sufficient for this purpose. Hospital accepts no responsibility if the information is made available to any other person, INCLUDING THE PATIENT. Interpretation Summary * Name: JOLIE NI Study Date: 12/10/2017 08:58 AM BP: 153/79 mmHg * Patient Location: [facility]\S\[id number] HR: 54 * : 1940 (M/d/yyyy) Gender: Male Height: 67 in * Age: 77 yrs Ethnicity: CA Weight: 214 lb * Ordering Physician: Abby Mojica * Referring Physician: Self, Referred * Performed By: Merle Forrester RDCS * * Reason For Study: CHEST PAIN * BSA: 2.1 m2 * -- Conclusions -- * There is mild asymmetric left ventricular hypertrophy. * Left ventricular systolic function is normal. * Grade I diastolic dysfunction, (abnormal relaxation pattern). * Aortic valve sclerosis mild, without significant aortic valvular stenosis. * Right ventricular systolic pressure is elevated at 30-40mmHg. * Diagnostic exercise echocardiogram without evidence of inducible ischemia. * No significant change compared to an exercise echocardiogram from 12/30/2016 Procedure Details * ECHOEX, CPT #[id number] Left Ventricular Findings with Stress * Diagnostic exercise echocardiogram without evidence of inducible ischemia. Left Ventricle * The left ventricle is normal in size. * There is mild asymmetric left ventricular hypertrophy. * Ejection Fraction = 60-65%. * Left ventricular systolic function is normal. * Grade I diastolic dysfunction, (abnormal relaxation pattern). * The left ventricular wall motion is normal at rest. Right Ventricle * The right ventricle is normal in size and function. * The right ventricular systolic function is normal as assessed by tricuspid annular plane systolic excursion (TAPSE) (normal >1.5 cm). Atria * The left atrial size is normal. * Right atrium not well visualized. Mitral Valve * The mitral valve is normal in structure and function. * There is no mitral regurgitation noted. Tricuspid Valve * The tricuspid valve is not well visualized, but is grossly normal. * There is mild tricuspid regurgitation. * Right ventricular systolic pressure is elevated at 30-40mmHg. Aortic Valve * Aortic valve sclerosis mild, without significant aortic valvular stenosis. * No hemodynamically significant valvular aortic stenosis. * There is no significant aortic regurgitation. Great Vessels * The aortic root is normal size. Pericardium * There is no pericardial effusion. Stress Parameters * Normal baseline electrocardiogram. * There was development of 1 mm flat test upsloping ST segment depression at peak exertion which resolved rapidly in recovery * Rest heart rate was '54' BPM. * Rest blood pressure was '153/79' * Maximum heart rate achieved was 117 bpm. * Maximum heart rate was 81 % of maximum age-predicted heart rate. * Maximum blood pressure was '187/48' * Total exercise time was '6:16' * Maximum exercise MET level achieved was '7.40' METS * Maximum treadmill speed was '3.40' miles per hour. * Maximum treadmill elevation was '14.00'% grade. * Exercise was terminated due to 'LEG PAIN' Left Ventricular Findings with Stress * The baseline EKG was normal. With exercise was development of [address] segment depression which resolved rapidly in recovery. There were no symptoms of chest discomfort Baseline echocardiogram revealed normal LV function There was normal augmentation of all segments without development of wall motion abnormalities at peak exertion There was baseline hypertension with normal blood pressure response to exercise No arrhythmias Drake treadmill score: 1 (moderate risk) MMode 2D Measurements and Calculations IVSd 1.4 cm IVSs 1.9 cm LVIDd 4.4 cm LVIDs 2.9 cm LVPWd 1.1 cm LVPWs 1.6 cm IVS/LVPW 1.2 FS 33.8 % EDV(Teich) 88.2 ml ESV(Teich) 32.7 ml EF(Teich) 62.9 % EDV(cubed) 85.8 ml ESV(cubed) 24.9 ml EF(cubed) 71.0 % % IVS thick 36.1 % % LVPW thick 40.4 % LV mass(C)d 210.1 grams LV mass(C)dI 101.0 grams/m\S\2 LV mass(C)s 202.3 grams LV mass(C)sI 97.2 grams/m\S\2 SV(Teich) 55.5 ml SI(Teich) 26.6 ml/m\S\2 SV(cubed) 60.9 ml SI(cubed) 29.3 ml/m\S\2 Ao root diam 2.9 cm Ao root area 6.6 cm\S\2 LA dimension 3.3 cm LA/Ao 1.1 LVAd ap4 25.4 cm\S\2 LVLd ap4 8.1 cm EDV(MOD-sp4) 65.4 ml EDV(sp4-el) 67.6 ml LVAs ap4 13.6 cm\S\2 LVLs ap4 6.8 cm ESV(MOD-sp4) 25.5 ml ESV(sp4-el) 23.1 ml EF(MOD-sp4) 61.0 % EF(sp4-el) 65.9 % LVAd ap2 26.3 cm\S\2 LVLd ap2 8.5 cm EDV(MOD-sp2) 69.7 ml EDV(sp2-el) 69.0 ml LVAs ap2 13.8 cm\S\2 LVLs ap2 6.3 cm ESV(MOD-sp2) 26.0 ml ESV(sp2-el) 25.5 ml EF(MOD-sp2) 62.8 % EF(sp2-el) 63.1 % LVLd %diff 4.8 % EDV(MOD-bp) 68.1 ml LVLs %diff -7.97 % ESV(MOD-bp) 25.6 ml EF(MOD-bp) 62.4 % SV(MOD-sp4) 39.9 ml SI(MOD-sp4) 19.2 ml/m\S\2 SV(MOD-sp2) 43.8 ml SI(MOD-sp2) 21.0 ml/m\S\2 SV(MOD-bp) 42.5 ml SI(MOD-bp) 20.4 ml/m\S\2 SV(sp4-el) 44.6 ml SI(sp4-el) 21.4 ml/m\S\2 SV(sp2-el) 43.5 ml SI(sp2-el) 20.9 ml/m\S\2 Doppler Measurements and Calculations MV E max jason 75.7 cm/sec MV A max jason 105.3 cm/sec MV E/A 0.72 MV dec time 0.28 sec Ao V2 max 174.5 cm/sec Ao max PG 12.2 mmHg Ao max PG (full) 5.2 mmHg LV V1 max PG 7.0 mmHg LV V1 max 132.2 cm/sec TR max jason 269.1 cm/sec
[2017-12-10 11:24] VITALS: BP 151/74; PULSE 54; TEMP 36.7; O2SAT 97
[2017-12-10 11:46] VITALS: BP 139/67; PULSE 54; TEMP 36.5; O2SAT 94
--- NOTE | 2017-12-10 11:55 | Discharge Summary ---
Discharge Summary Date of Service Dec 10, 2017. Discharge Summary Admission Date: Dec 09, 2017 at 14:52 Discharge Date: Dec 10, 2017 Discharge Disposition: Home Principal Diagnosis: Musculoskeletal chest discomfort Immunizations: Have You Had Influenza Vaccine: No History of Tetanus Vaccine?: Yes Tetanus Immunization Date: Jun 08, 2011 History of Pneumococcal: Yes Pneumococcal Date: Jun 08, 2007 History of Hepatitis B Vaccine: No Procedures: Stress Treadmill echocardiogram 12/10/17 * There is mild asymmetric left ventricular hypertrophy. * Left ventricular systolic function is normal. * Grade I diastolic dysfunction, (abnormal relaxation pattern). * Aortic valve sclerosis mild, without significant aortic valvular stenosis. * Right ventricular systolic pressure is elevated at 30-40mmHg. * Diagnostic exercise echocardiogram without evidence of inducible ischemia. * No significant change compared to an exercise echocardiogram from 2016 CXR 1 view 12/10/17 IMPRESSION: Negative chest. Consultations: None Medication Reconciliation Continued Medications: Acetaminophen (Tylenol Arthritis Ext Rel) 650 Mg Tab 650 MG PO Q8H PRN for Pain Amiodarone HCl (Amiodarone HCl) 200 Mg Tab 200 MG PO Q2D Aspirin (Aspirin) 81 Mg Tab 81 MG PO HS Cholecalciferol (D 1000) 1,000 Unit Cap 1000 INTER.UNIT PO BID Doxazosin Mesylate (Doxazosin Mesylate) 4 Mg Tab 4 MG PO HS Fiber Laxative (Fiber Laxative) Ea 1 DOSE PO qam/pm Finasteride (Finasteride) 5 Mg Tab 5 MG PO HS Losartan Potassium (Cozaar) 100 Mg Tab 1 TAB PO HS Multiple Vitamins W/ Minerals (Preservision Areds 2) 1 Cap Cap 1 TAB PO BID Nitroglycerin (Nitrostat) 0.4 Mg Tab 0.4 MG UT PRN Omeprazole (Prilosec) 20 Mg Capcr 20 MG PO QAM Rosuvastatin Calcium (Crestor) 40 Mg Tab 20 MG PO Q2D Sennosides-Docusate Sodium (Stool Softener) 1 Tab Tab 1 TAB PO BID Discharge Exam The patient was seen and examined this morning. Pt reports doing well overall. He completed the stress treadmill test without difficulty. He notes he was on the treadmill for 45 min yesterday morning after enrolling in [employer] program through the [employer], and noticed that he was holding onto the treadmill bar for most of that period. When he noticed more pain it was while he was driving for an hour straight. He had this dull constant pain for several hours , and actually fell asleep on his recliner, then asked him to go to the ER. He denies waxing and waning pain. No radiation to his arms or into the jaw , no dasilva, chest tightness, palpitation or flutter. ROS: 6 point ROS reviewed and otherwise negative. PE: General: awake, alert, no apparent distress Head: Normocephalic, atraumatic ENT: PERRL, EOMI, no pharyngeal exudate, mucous membranes moist Chest: no chest pain with palpation, Clear to auscultation, on room air, no adventitious breath sounds Cardiac: +bradycardic with HR in high 59s, no murmur, no JVD, normal peripheral pulses, good capillary refill Abdominal: NABS x 4 quadrants, soft, nontender to palpation, no rebound, guarding or tenderness Extremities: Normal inspection, no peripheral edema or erythema, calfs nontender to palpation Psych: Normal mood and affect Neuro: AAO x 3, strength intact bilaterally and related 5/5, no motor deficits, speech is clear, no peripheral sensory deficits Hospital Course 77 y/o male with a history of CAD s/p stent (2007), HTN, HLD, paroxysmal a-fib, BPH and GERD who presented to the ED on 12/09 with chest discomfort. The patient is afebrile, VSS on arrival. CXR no acute disease, EKG no ischemic changes. Troponin negative. Labs grossly unremarkable. Pt received full dose aspirin in ED. Chest pain, ACS r/o -Cardiac enzymes are negative 3 -Stress echo conducted, negative. -EKG q am and prn chest pain-patient did not have any recurrent chest pain during admission -Continue ASA, statin -Lipid panel in Sep 2017 WNL, will not repeat -H/o prediabetes, HgbA1c= 6.0 CAD s/p stent, HTN, HLD, paroxysmal a-fib--stable, NSR -Continue ASA, losartan 100 mg PO hs, Crestor 20 mg PO q2d, amiodarone 200 mg PO q2d -Patient follows with cardiology as an outpatient, Dr. Ba - was last seen in September and has routine follow-up has been requested within 2 weeks. BPH -Continue Proscar 5 mg PO qd, doxazosin 4 mg PO hs GERD -Convert Prilosec to Protonix DVT prophylaxis -Enoxaparin 40 mg SC q24h -KYM ladane and SCDs Code Status -Level I, FULL RESUSCITATION STATUS Disposition: Patient from home, lives with , discharged today. Supervising Note Dr. Chow I performed a history and physical examination on the patient. I reviewed above note and agree with it. I discussed plan with APC and patient. During my face to face encounter with the patient, I answered all of the patient's questions. Cardiac workup was negative as noted above. Total Time Spent: Greater than 30 minutes This includes examination of the patient, discharge planning, medication reconciliation, and communication with other providers. Discharge Instructions Please refer to the electronic Patient Visit Report (Discharge Instructions) for additional information. Follow-Up Follow up with your Primary Care Provider within 1 week. Follow up with cardiology within 2 weeks. Additional Copies To Deborah Mercer M.D.
[2017-12-10] MEDS ORDERED: AMIODARONE 200 MG TAB PO SCH (21:00)
== END 2017-12-10 14:24 | disposition home or self-care (01) ==
LOC: C.EDB 10:53 → C.MED 14:52 → ENRESERV 15:14
PROVIDERS: ADMIT Internal Medicine; ATTEND Internal Medicine
DX: R07.89 Other chest pain (principal); I25.10 Atherosclerotic heart disease of native coronary artery without angina pectoris; I10 Essential (primary) hypertension; K57.30 Diverticulosis of large intestine without perforation or abscess without bleeding; E78.5 Hyperlipidemia, unspecified; I48.0 Paroxysmal atrial fibrillation; N40.0 Benign prostatic hyperplasia without lower urinary tract symptoms; K21.9 Gastro-esophageal reflux disease without esophagitis; Z79.82 Long term (current) use of aspirin; Z79.01 Long term (current) use of anticoagulants; Z88.2 Allergy status to sulfonamides; Z88.1 Allergy status to other antibiotic agents; Z98.61 Coronary angioplasty status; Z87.891 Personal history of nicotine dependence; Z83.3 Family history of diabetes mellitus; Z82.49 Family history of ischemic heart disease and other diseases of the circulatory system

== ENCOUNTER 2019-03-15 18:56 | Observation (INO) ==
[2019-03-15] MEDS ORDERED: NITROGLYCERIN 2% OINTMENT 30GM TUBE EXT STA (19:14)
--- NOTE | 2019-03-15 19:32 | XRay Report ---
XR chest 1V portable CLINICAL HISTORY: Atypical chest pain COMPARISON STUDY: December 09, 2017 FINDINGS: The heart is moderately enlarged. Since the prior study, the patient has developed intersti tial thickening. This likely represents mild interstitial edema. A bilateral interstitial inflammator y processes could appear similar. There is a small right pleural effusion. There is no pneumothorax.[ IMPRESSION: 1. Cardiomegaly and interval development of an elevated interstitium. This statistically represents m ild cardiogenic interstitial edema. There is a small right pleural effusion. Clinical and radiographi c follow-up is recommended. Electronically signed by: Waqas Pedraza M.D. 03/15/2019 7:31 PM
[2019-03-15 19:40] LABS: Basophils # (auto) 0.02 K/uL (0-0.2); Basophils % (auto) 0.3 %; Eosinophils # (auto) 0.16 K/uL (0-0.5); Eosinophils % (auto) 2.7 %; Hemoglobin 13.3 g/dL (14.0-18.0); Immature Granulocytes # (auto) 0.01 K/uL (0.00-0.02); Immature Granulocytes % (auto) 0.2 %; Lymphocytes # (auto) 1.29 K/uL (1.2-3.4); Lymphocytes % (auto) 22.1 %; Mean Corpuscular Hgb Conc 33.3 g/dL (32-36); Mean Corpuscular Volume 89.7 fL (80-100); Mean Platelet Volume 10.8 fL (7.4-10.4); Monocytes # (auto) 0.55 K/uL (0.11-0.59); Monocytes % (auto) 9.4 %; Neutrophils # (auto) 3.82 K/uL (1.4-6.5); Neutrophils % (auto) 65.3 %; Platelet Count 210 K/uL (130-400); RDW Coefficient of Variation 14.5 % (11.5-14.5); RDW Standard Deviation 47.5 fL (36.4-46.3); Red Blood Count 4.46 M/uL (4.7-6.1); White Blood Count 5.85 K/uL (4.8-10.8)
[2019-03-15 19:57] LABS: Alanine Aminotransferase 23 U/L (12-78); Albumin Level 3.9 gm/dl (3.4-5.0); Aspartate Aminotransferase 17 U/L (15-37); Blood Urea Nitrogen 22 mg/dl (7-18); Calcium 8.5 mg/dl (8.5-10.1); Carbon Dioxide 26 mmol/L (21-32); Chloride 108 mmol/L (98-107); Creatinine Clr Calc Pharmacy 48.5 ml/min; Est GFR (African American) 57.5; Est GFR (Non-African American) 49.6; Glucose 108 mg/dl (70-99); Potassium 3.7 mmol/L (3.5-5.1); Sodium 141 mmol/L (136-145)
[2019-03-15 20:02] LABS: Albumin Globulin Ratio 1.2 (0.9-2); Alkaline Phosphatase 66 U/L (45-117); Bilirubin,Total 0.3 mg/dl (0.2-1); Globulin 3.3 gm/dl (2.5-4.0); Total Protein 7.2 gm/dl (6.4-8.2); Troponin I < 0.015 ng/ml (0-0.045)
--- NOTE | 2019-03-15 22:51 | History & Physical Report ---
Date of Service March 15, 2019 Assessment & Plan (1) Hypertension: Patient presenting with hypertensive urgency, brief episode of chest pain prior to arrival now resolved. No evidence of end-organ damage at this time. EKG with no ischemic findings, troponin negative. Blood pressure markedly improved with NitroPaste, presently 147/77. Patient reports adequate BP control at home on Amlodipine 2.5mg po daily. Uncertain why he presents today with poor control. -Observation to medical floor with telemetry monitoring -Will give additional dose of Amlodipine 2.5 mg now and increase to 5mg po daily -Monitor BP q 2 hours on floor Present on Admission?: Yes (2) Chest discomfort: Patient with brief episode of chest discomfort now resolved. No EKG or laboratory evidence for ischemia at present. Possibly secondary to marked elevation in BP now improved. Patient with known CAD s/p ALONSO to LAD in 2007. He denies exertional symptoms at baseline. He follows with Dr. Ba. -Trend troponin x 3 sets -Telemetry monitoring -Continue ASA 81mg po daily -Continue Crestor 20mg po QOD -Continue to monitor Present on Admission?: Yes (3) Atrial fibrillation: Patient presently in sinus bradycardia at 57bpm. Reports that his HR is typically in the 50's. No symptoms of dizziness/lightheadedness with this rate. Patient is presently not on anticoagulation. -Continue Amiodarone QOD -Continue to monitor Present on Admission?: Yes (4) Dyslipidemia: Chronic -Crestor QOD Present on Admission?: Yes (5) GERD (gastroesophageal reflux disease): Stable. Chronic -Continue Omeprazole daily Present on Admission?: Yes (6) BPH (benign prostatic hyperplasia): Chronic. Stable. No symptoms at present\ -Continue Doxazosin -Continue Finasteride F/E/N - Heplock. Monitor electrolytes and replete as needed. Heart healthy diet as tolerated Ppx - SCDs and Teds Code -Full per discussion with patient Dispo - Observation to medical floor Present on Admission?: Yes History of Present Illness Chief Complaint: elevated blood pressure Primary Care Provider: Qamar Sanchez DO Mr. Primitivo Fowler is a pleasant 79yo C male with history of HTN, HLP, CAD s/p ALONSO to LAD in 2007, AF on Amiodarone presenting with hypertension. Patient was in his usual state of health during the day today. He ate dinner at 17:30 and shortly after developed left sided chest pressure, described as squeezing, 4/10. He denies diaphoresis, SOB, palpitations, dizziness with the chest pressure. Pain lasted only a few minutes then resolved on its own. He checked his blood pressure at that time and it was markedly elevated at 241/140. Patient called EMS and was transported to [facility]. On arrival here his blood pressure was found to be 207/80. He had 0.5in of Nitropaste placed with improvement in BP. Patient monitors his blood pressure frequently at home - reports it typically is 120-130/60-80. His heart rate is usually in the 50's. He denies recent medication changes or missed doses. He has not been using OTC cold medications or supplements. He denies headache. He has macular degeneration in the right eye with baseline visual field deficit, however reports no change in this. He denies SOB, dizziness, numbness/weakness. He reports feeling well presently with no additional complaints. ER Course: NitroPaste Allergies Allergy/AdvReac Type Severity Reaction Status Date / Time Bactrim Allergy Intermediate RASH Verified 12/09/17 11:17 Sulfa (Sulfonamide Allergy Intermediate RASH Verified 03/15/19 21:09 Antibiotics) sulfamethoxazole Allergy Intermediate RASH Verified 03/15/19 21:09 trimethoprim Allergy Intermediate RASH Verified 03/15/19 21:09 rivaroxaban Allergy Mild SHORTNESS Verified 03/15/19 21:09 OF BREATH amoxicillin Allergy Unknown Unknown Verified 03/15/19 21:09 azithromycin [From Zithromax] AdvReac Intermediate Nausea Verified 03/15/19 21:09 mivacurium AdvReac Mild UPSET Verified 03/15/19 21:09 STOMACH Home Medications Home Medications Medication Instructions Recorded Confirmed Type calcium polycarbophil [Fiber-Tabs] 1 tab PO AMHS 05/30/18 03/15/19 History acetaminophen ER 650 mg 650 mg PO Q12H PRN 02/15/19 03/15/19 History tablet,extended release aspirin 81 mg tablet,delayed 81 mg PO HS tab 02/15/19 03/15/19 History release cholecalciferol (vitamin D3) 1,000 1,000 unit PO [facility]HS cap 02/15/19 03/15/19 History unit capsule amiodarone 200 mg tablet 200 mg PO Q2D tab 02/27/19 03/15/19 History amlodipine 2.5 mg tablet 2.5 mg PO QAM tab 02/27/19 03/15/19 History diclofenac 1 % topical gel 2 gm TOP QID PRN gm 02/27/19 03/15/19 History docusate sodium 100 mg capsule 100 mg PO AMHS 02/27/19 03/15/19 History doxazosin 4 mg tablet 4 mg PO HS tab 02/27/19 03/15/19 History finasteride 5 mg tablet 5 mg PO HS tab 02/27/19 03/15/19 History nitroglycerin 0.4 mg sublingual See Rx Instructions SL .COMPLEX 02/27/19 03/15/19 History tablet PRN tab omeprazole 20 mg capsule,delayed 20 mg PO QAM cap 02/27/19 03/15/19 History release rosuvastatin 40 mg tablet 20 mg PO Q2D tab 02/27/19 03/15/19 History vit C,Q-Fa-nipdr-lutein-zeaxan 1 tab PO AMHS 03/15/19 03/15/19 History [PreserVision AREDS-2] Past Med/Surg History Medical History Chronic arthritis (Chronic) Cervicalgia (Chronic) Acute bronchitis (Acute) CAD (coronary artery disease) ALONSO [place] [facility] [place]rial fibrillation NO CARDIOVERSION. TAKES AMIODARONE Q2D. BPH (benign prostatic hyperplasia) Cardiac murmur SINCE GERD (gastroesophageal reflux disease) Hyperlipidemia Hypertension Macular degeneration of right eye Surgical History H/O arthroscopy of knee BILATERAL H/O inguinal hernia repair LEFT H/O umbilical hernia repair History of cardiac cath ~2007 WITH 1 STENT (DRUG-ELUTING STENT) DONE AT [facility]. History of carpal tunnel release BILATERAL History of colonoscopy History of laminectomy History of repair of rotator cuff BILATERAL Hx of cataract surgery right Social History Preferred Language: Uzbek Communication Ability: Effective Beliefs That Will Affect Care: None Current Living Situation: Spouse Feels Safe at Home: Yes Smoking Status: Former smoker Tobacco Type: cigarettes Second Hand Exposure: No Hx Alcohol Use: Yes Hx Substance Use: No Review of Systems Review of Systems: All systems reviewed & are unremarkable except as noted in HPI & below Physical Exam Physical Exam: General: patient resting comfortably, NAD, non-toxic in appearance, AA&O x 4 Skin: warm, dry, intact, no rashes or lesions HEENT: NC/AT, PERRL, EOMI, anicteric sclera, conjunctiva without injection, external ear normal to inspection and nontender, nares patent, moist mucus membranes, dentition intact, no oropharyngeal lesions, neck supple, trachea midline, no LAD, no thyromegaly, no JVD Heart: +S1/S2, regular, soft 2/6 LOULOU at left sternal border, no r/g Lungs: equal air entry bilaterally, no rales/rhonchi/wheezes Abd: +BS, soft, NT/ND, no masses/organomegaly/ascites Ext: warm, 2+ pulses in UE/LE bilaterally, no clubbing/cyanosis or edema Neuro: nonfocal, patient AA&O x 4, speech intact, no facial droop, moving all extremities on command with equal strength 5/5 Results & Data Vital Signs (Past 12 Hours) Vital Signs Temp Pulse Pulse Resp BP BP Pulse Ox 03/15/19 22:10 56 L 19 94 03/15/19 22:00 58 L 20 157/92 H 96 03/15/19 21:50 57 L 18 93 03/15/19 21:40 56 L 18 92 03/15/19 21:30 63 13 147/77 H 94 03/15/19 21:20 56 L 19 93 03/15/19 21:10 54 L 19 94 03/15/19 21:00 67 14 164/85 H 94 03/15/19 20:50 54 L 19 96 03/15/19 20:40 53 L 21 96 03/15/19 20:30 54 L 21 185/90 H 95 03/15/19 20:20 54 L 17 95 03/15/19 20:10 54 L 18 97 03/15/19 20:00 54 L 16 158/87 H 95 03/15/19 19:50 54 L 14 96 03/15/19 19:40 55 L 17 96 03/15/19 19:30 55 L 19 176/94 H 95 03/15/19 19:28 54 L 58 L 17 186/96 H 186/96 H 94 03/15/19 19:14 205/103 H 03/15/19 19:07 36.8 C 58 L 20 208/80 H 96 03/15/19 19:00 61 14 207/94 H Laboratory Results Lab Results 03/15/19 03/15/19 Range/Units 19:19 19:19 WBC 5.85 (4.8-10.8) K/uL RBC 4.46 L (4.7-6.1) M/uL Hgb 13.3 L (14.0-18.0) g/dL Hct 40.0 L (42-52) % MCV 89.7 (80-100) fL MCH 29.8 (25-34) pg MCHC 33.3 (32-36) g/dL RDW Std Deviation 47.5 H (36.4-46.3) fL RDW Coeff of Luis E 14.5 (11.5-14.5) % Plt Count 210 (130-400) K/uL MPV 10.8 H (7.4-10.4) fL Immature Gran % (Auto) 0.2 % Neut % (Auto) 65.3 % Lymph % (Auto) 22.1 % [place] % (Auto) 9.4 % Eos % (Auto) 2.7 % Baso % (Auto) 0.3 % Immature Gran # (Auto) 0.01 (0.00-0.02) K/uL Neut # (Auto) 3.82 (1.4-6.5) K/uL Lymph # (Auto) 1.29 (1.2-3.4) K/uL [place] # (Auto) 0.55 (0.11-0.59) K/uL Eos # (Auto) 0.16 (0-0.5) K/uL Baso # (Auto) 0.02 (0-0.2) K/uL Sodium 141 (136-145) mmol/L Potassium 3.7 (3.5-5.1) mmol/L Chloride 108 H (98-107) mmol/L Carbon Dioxide 26 (21-32) mmol/L Anion Gap 7.0 (3-11) BUN 22 H (7-18) mg/dl Creatinine 1.35 (0.6-1.4) mg/dl Est Cr Clr Drug Dosing 48.5 ml/min Est GFR ( Amer) 57.5 Est GFR (Non-Af Amer) 49.6 BUN/Creatinine Ratio 16.0 (10-20) Glucose 108 H (70-99) mg/dl Calcium 8.5 (8.5-10.1) mg/dl Total Bilirubin 0.3 (0.2-1) mg/dl AST 17 (15-37) U/L ALT 23 (12-78) U/L Alkaline Phosphatase 66 (45-117) U/L Troponin I < 0.015 (0-0.045) ng/ml Total Protein 7.2 (6.4-8.2) gm/dl Albumin 3.9 (3.4-5.0) gm/dl Globulin 3.3 (2.5-4.0) gm/dl Albumin/Globulin Ratio 1.2 (0.9-2) Lipase 188 (73-393) U/L Diagnostic Findings XR chest 1V portable CLINICAL HISTORY: Atypical chest pain COMPARISON STUDY: December 09, 2017 FINDINGS: The heart is moderately enlarged. Since the prior study, the patient has developed interstitial thickening. This likely represents mild interstitial edema. A bilateral interstitial inflammatory processes could appear similar. There is a small right pleural effusion. There is no pneumothorax.[ IMPRESSION: 1. Cardiomegaly and interval development of an elevated interstitium. This statistically represents mild cardiogenic interstitial edema. There is a small right pleural effusion. Clinical and radiographic follow-up is recommended. Electronically signed by: Waqas Pedraza M.D. 03/15/2019 7:31 PM Dictated: 03/15/191929 Transcribed: 03/15/191929 ECG Additional Comments: The study shows sinus bradycardia at 57bpm, normal axis, TB=973, QRS=78, UDt=981, no acute ischemic changes. No evidence of LVH Code Status & VTE Plan Code Status FULL PG Care Time/CCT Total # of Minutes Spent Total Time Spent with Patient: Total time spent is greater than 50% in coordination of care (as documented) at patient's floor/unit and/or counseling patient: (1) Hypertension Hypertension type: unspecified Qualified Code(s): I10 - Essential (primary) hypertension (2) Atrial fibrillation Atrial fibrillation type: paroxysmal Qualified Code(s): I48.0 - Paroxysmal atrial fibrillation (3) GERD (gastroesophageal reflux disease) Esophagitis presence: esophagitis presence not specified Qualified Code(s): K21.9 - Gastro-esophageal reflux disease without esophagitis (4) BPH (benign prostatic hyperplasia) Lower urinary tract symptom presence: unspecified whether lower urinary tract symptoms present Qualified Code(s): N40.0 - Benign prostatic hyperplasia without lower urinary tract symptoms
[2019-03-16] MEDS ORDERED: ACETAMINOPHEN 325 MG TAB PO PRN
[2019-03-16 00:47] LABS: Magnesium 2.3 mg/dl (1.8-2.4); Phosphorus 3.1 mg/dl (2.5-4.9)
--- NOTE | 2019-03-16 03:40 | Emergency Department Note ---
Entered by Jaun Suarez acting as a scribe for ED Provider Note CHIEF COMPLAINT: Chest pain HISTORY OF PRESENT ILLNESS: The patient is a 79 year old male who presents to the Emergency Room with complaints of waxing and waning chest tightness that started about an hour ago. The patient rates the pain as a 4/10 at its worst, but patient reports that he is currently feeling better now relative to when the symptoms first began. Per the nursing note, the patient received 325mg of Aspirin en route but did not take any of his Nitro. During this episode the patient denied any diaphoresis, nausea, vomiting, or shortness of breath. The patient does have a history of Afib and had a stent placed in 2007. The patient states that he also has been intermittently experiencing dizzy spells as of late. He reports that the dizziness was especially bad when he took Mucinex on top of all of his other medications. He denies having any chest pressure during this episodes. Pt denies LOC, headache, fevers, chills, diaphoresis, visual changes, neck pain, breathing difficulties, nausea, vomiting, abdominal pain, back pain, melena, hematochezia, urinary symptoms, numbness, weakness, lymphadenopathy, rash, or other complaints. REVIEW OF SYSTEMS: See HPI for pertinent positives and negatives. A total of ten systems were reviewed and were otherwise negative. PMHx/PSHx: Afib with RVR, LAD stent, Chronic arthritis, Cervicalgia, Somatic dysfunction SOCIAL HISTORY: Patient lives at home. PHYSICAL EXAM: GENERAL: Awake, alert, well-appearing, in no distress HENT: Normocephalic, atraumatic. Oropharynx unremarkable. EYES: Normal conjunctiva. Sclera non-icteric. NECK: Inspection normal. Non-tender. Supple. No nuchal rigidity. FROM. No masses. RESPIRATORY: Clear to auscultation. No wheezes. No rales. Normal respiratory effort. CARDIAC: Borderline bradycardic rate. Normal rhythm. No murmurs. No rubs. Extremities warm and well perfused. Pulses equal. No JVD. GI: Soft, non-distended. No tenderness to palpation. No rebound or guarding. No masses. RECTAL: Deferred. MUSCULOSKELETAL: Atraumatic. Chest examination reveals no tenderness. The back is symmetrical on inspection without obvious abnormality. There is no CVA tenderness to palpation. No joint edema. LOWER EXTREMITIES: Calves are equal size bilaterally and non-tender. No edema. No discoloration. NEURO: Normal sensorium. No sensory or motor deficits noted. SKIN: No rash or jaundice noted. EMERGENCY DEPARTMENT COURSE: 1908: The patient was evaluated in room B02, and a complete history and physical examination were performed. 2026: I reevaluated the patient and updated him on results obtained thus far. We also discussed the treatment plan. The patient both understands and agrees with the plan. 2141: I spoke to Dr. Whitmore - [facility] Hospitalist about the patient's case and she is going to accept him for further evaluation. MEDICAL DECISION MAKING: Prior records/ancillary studies reviewed. Triage Nursing notes reviewed and agree them. Additional history obtained from the family. The patient's history was concerning for chest pain. Differential diagnosis: Etiologies such as cardiac ischemia, aortic dissection, pulmonary embolism, pneumonia, pneumothorax, musculoskeletal, infections, pericarditis, myocarditis, esophageal rupture, gastrointestinal, as well as others were entertained. Physical examination: As above. ER treatment provided: Monitoring Nitropaste On reassessment the patient felt better. Diagnostic interpretation by me: The electrocardiogram was negative for pathologic change. The labs revealed an unremarkable CBC and chemistry panel. Troponin negative. Imaging studies: Chest x-ray negative for acute disease. The patient has a cardiac history. He had chest pain and severe hypertension at home. Admitted for further management. Consultation: A consultation was placed with the hospitalist. The case was discussed and diagnostics were reviewed. The patient was evaluated in the ER for further treatment. IMPRESSION: Substernal chest pain, Hypertension PLAN: Admitted as inpatient Impression & Plan Substernal chest pain, Hypertension Past Med/Surg History Medical History Chronic arthritis (Chronic) Cervicalgia (Chronic) Acute bronchitis (Acute) CAD (coronary artery disease) ALONSO to LAD in 2007 at [facility] Atrial fibrillation NO CARDIOVERSION. TAKES AMIODARONE Q2D. BPH (benign prostatic hyperplasia) Cardiac murmur SINCE GERD (gastroesophageal reflux disease) Hyperlipidemia Hypertension Macular degeneration of right eye Surgical History H/O arthroscopy of knee BILATERAL H/O inguinal hernia repair LEFT H/O umbilical hernia repair History of cardiac cath ~2007 WITH 1 STENT (DRUG-ELUTING STENT) DONE AT [facility]. History of carpal tunnel release BILATERAL History of colonoscopy History of laminectomy History of repair of rotator cuff BILATERAL Hx of cataract surgery right Social History Preferred Language: Singaporean Communication Ability: Effective Beliefs That Will Affect Care: None Current Living Situation: Spouse Feels Safe at Home: Yes Smoking Status: Former smoker Tobacco Type: cigarettes Second Hand Exposure: No Hx Alcohol Use: Yes Alcohol type: beer Hx Substance Use: No Results & Data Vital Signs Vital Signs - 24 hr 03/15/19 19:00 03/15/19 19:07 03/15/19 19:14 Temperature 36.8 C Temperature Source Oral Sepsis Recent Fever Within 48 Hours No Sepsis Action Taken by Nursing No Action Required Pulse Rate 61 58 L Pulse Rate [Right Finger] Pulse Rate from SpO2 Sensor Pulse Rhythm [Right Finger] Pulse Strength [Right Finger] Respiratory Rate 14 20 Respiratory Effort / Characteristics Non-Labored Respiratory Depth Normal Blood Pressure 207/94 H 208/80 H 205/103 H Blood Pressure [Right Arm] Blood Pressure Mean 131 122 137 Blood Pressure Mean [Right Arm] Pulse Oximetry 96 Oxygen Delivery Method Room Air 03/15/19 19:28 03/15/19 19:30 03/15/19 19:40 Temperature Temperature Source Sepsis Recent Fever Within 48 Hours Sepsis Action Taken by Nursing Pulse Rate 54 L 55 L 55 L Pulse Rate [Right Finger] 58 L Pulse Rate from SpO2 Sensor 53 L 55 L 55 L Pulse Rhythm [Right Finger] Regular Pulse Strength [Right Finger] Normal Respiratory Rate 17 19 17 Respiratory Effort / Characteristics Non-Labored Spontaneous Respiratory Depth Normal Blood Pressure 186/96 H 176/94 H Blood Pressure [Right Arm] 186/96 H Blood Pressure Mean 126 121 Blood Pressure Mean [Right Arm] 126 Pulse Oximetry 94 95 96 Oxygen Delivery Method Room Air 03/15/19 19:50 03/15/19 20:00 03/15/19 20:10 Temperature Temperature Source Sepsis Recent Fever Within 48 Hours Sepsis Action Taken by Nursing Pulse Rate 54 L 54 L 54 L Pulse Rate [Right Finger] Pulse Rate from SpO2 Sensor 53 L 54 L 53 L Pulse Rhythm [Right Finger] Pulse Strength [Right Finger] Respiratory Rate 14 16 18 Respiratory Effort / Characteristics Respiratory Depth Blood Pressure 158/87 H Blood Pressure [Right Arm] Blood Pressure Mean 110 Blood Pressure Mean [Right Arm] Pulse Oximetry 96 95 97 Oxygen Delivery Method 03/15/19 20:20 03/15/19 20:30 03/15/19 20:40 Temperature Temperature Source Sepsis Recent Fever Within 48 Hours Sepsis Action Taken by Nursing Pulse Rate 54 L 54 L 53 L Pulse Rate [Right Finger] Pulse Rate from SpO2 Sensor 54 L 55 L 52 L Pulse Rhythm [Right Finger] Pulse Strength [Right Finger] Respiratory Rate 17 21 21 Respiratory Effort / Characteristics Respiratory Depth Blood Pressure 185/90 H Blood Pressure [Right Arm] Blood Pressure Mean 121 Blood Pressure Mean [Right Arm] Pulse Oximetry 95 95 96 Oxygen Delivery Method 03/15/19 20:50 03/15/19 21:00 03/15/19 21:10 Temperature Temperature Source Sepsis Recent Fever Within 48 Hours Sepsis Action Taken by Nursing Pulse Rate 54 L 67 54 L Pulse Rate [Right Finger] Pulse Rate from SpO2 Sensor 55 L 65 53 L Pulse Rhythm [Right Finger] Pulse Strength [Right Finger] Respiratory Rate 19 14 19 Respiratory Effort / Characteristics Respiratory Depth Blood Pressure 164/85 H Blood Pressure [Right Arm] Blood Pressure Mean 111 Blood Pressure Mean [Right Arm] Pulse Oximetry 96 94 94 Oxygen Delivery Method 03/15/19 21:20 03/15/19 21:30 03/15/19 21:40 Temperature Temperature Source Sepsis Recent Fever Within 48 Hours Sepsis Action Taken by Nursing Pulse Rate 56 L 63 56 L Pulse Rate [Right Finger] Pulse Rate from SpO2 Sensor 56 L 63 56 L Pulse Rhythm [Right Finger] Pulse Strength [Right Finger] Respiratory Rate 19 13 18 Respiratory Effort / Characteristics Respiratory Depth Blood Pressure 147/77 H Blood Pressure [Right Arm] Blood Pressure Mean 100 Blood Pressure Mean [Right Arm] Pulse Oximetry 93 94 92 Oxygen Delivery Method 03/15/19 21:50 03/15/19 22:00 03/15/19 22:10 Temperature Temperature Source Sepsis Recent Fever Within 48 Hours Sepsis Action Taken by Nursing Pulse Rate 57 L 58 L 56 L Pulse Rate [Right Finger] Pulse Rate from SpO2 Sensor 56 L 58 L 56 L Pulse Rhythm [Right Finger] Pulse Strength [Right Finger] Respiratory Rate 18 20 19 Respiratory Effort / Characteristics Respiratory Depth Blood Pressure 157/92 H Blood Pressure [Right Arm] Blood Pressure Mean 113 Blood Pressure Mean [Right Arm] Pulse Oximetry 93 96 94 Oxygen Delivery Method 03/15/19 22:20 03/15/19 22:30 Temperature Temperature Source Sepsis Recent Fever Within 48 Hours Sepsis Action Taken by Nursing Pulse Rate 54 L 57 L Pulse Rate [Right Finger] Pulse Rate from SpO2 Sensor 55 L 55 L Pulse Rhythm [Right Finger] Pulse Strength [Right Finger] Respiratory Rate 15 17 Respiratory Effort / Characteristics Respiratory Depth Blood Pressure 147/79 H Blood Pressure [Right Arm] Blood Pressure Mean 101 Blood Pressure Mean [Right Arm] Pulse Oximetry 95 94 Oxygen Delivery Method Home Medications Current Medication List: was personally reviewed by me Laboratory Data Attestation: I reviewed the patient's lab results. Result diagrams: 03/15/19 19:19 03/15/19 19:19 Lab Results 03/15/19 03/15/19 Range/Units 19:19 19:19 WBC 5.85 (4.8-10.8) K/uL RBC 4.46 L (4.7-6.1) M/uL Hgb 13.3 L (14.0-18.0) g/dL Hct 40.0 L (42-52) % MCV 89.7 (80-100) fL MCH 29.8 (25-34) pg MCHC 33.3 (32-36) g/dL RDW Std Deviation 47.5 H (36.4-46.3) fL RDW Coeff of Luis E 14.5 (11.5-14.5) % Plt Count 210 (130-400) K/uL MPV 10.8 H (7.4-10.4) fL Immature Gran % (Auto) 0.2 % Neut % (Auto) 65.3 % Lymph % (Auto) 22.1 % [place] % (Auto) 9.4 % Eos % (Auto) 2.7 % Baso % (Auto) 0.3 % Immature Gran # (Auto) 0.01 (0.00-0.02) K/uL Neut # (Auto) 3.82 (1.4-6.5) K/uL Lymph # (Auto) 1.29 (1.2-3.4) K/uL [place] # (Auto) 0.55 (0.11-0.59) K/uL Eos # (Auto) 0.16 (0-0.5) K/uL Baso # (Auto) 0.02 (0-0.2) K/uL Sodium 141 (136-145) mmol/L Potassium 3.7 (3.5-5.1) mmol/L Chloride 108 H (98-107) mmol/L Carbon Dioxide 26 (21-32) mmol/L Anion Gap 7.0 (3-11) BUN 22 H (7-18) mg/dl Creatinine 1.35 (0.6-1.4) mg/dl Est Cr Clr Drug Dosing 48.5 ml/min Est GFR ( Amer) 57.5 Est GFR (Non-Af Amer) 49.6 BUN/Creatinine Ratio 16.0 (10-20) Glucose 108 H (70-99) mg/dl Calcium 8.5 (8.5-10.1) mg/dl Phosphorus 3.1 (2.5-4.9) mg/dl Magnesium 2.3 (1.8-2.4) mg/dl Total Bilirubin 0.3 (0.2-1) mg/dl AST 17 (15-37) U/L ALT 23 (12-78) U/L Alkaline Phosphatase 66 (45-117) U/L Troponin I < 0.015 (0-0.045) ng/ml Total Protein 7.2 (6.4-8.2) gm/dl Albumin 3.9 (3.4-5.0) gm/dl Globulin 3.3 (2.5-4.0) gm/dl Albumin/Globulin Ratio 1.2 (0.9-2) Lipase 188 (73-393) U/L Administered Medications Discontinued Medications Amlodipine Besylate (Norvasc) 2.5 mg PO NOW ONE Stop: 03/16/19 00:01 Last Admin: 03/16/19 01:41 Dose: 2.5 mg Documented by: [id number] Nitroglycerin (Nitro-Bid 2%) 0.5 inch EXT NOW STA Stop: 03/15/19 19:15 Last Admin: 03/15/19 19:27 Dose: 0.5 inch Documented by: [id number] Imaging Data Radiologist's Impression: Radiology results as stated below per my review and the radiologist's interpretation: XR chest 1V portable CLINICAL HISTORY: Atypical chest pain COMPARISON STUDY: December 09, 2017 FINDINGS: The heart is moderately enlarged. Since the prior study, the patient has developed interstitial thickening. This likely represents mild interstitial edema. A bilateral interstitial inflammatory processes could appear similar. There is a small right pleural effusion. There is no pneumothorax.[ IMPRESSION: 1. Cardiomegaly and interval development of an elevated interstitium. This s tatistically represents mild cardiogenic interstitial edema. There is a small right pleural effusion. Clinical and radiographic follow-up is recommended. Electronically signed by: Waqas Pedraza M.D. 03/15/2019 7:31 PM ECG Data Attestation: I personally reviewed and interpreted this ECG as follows: Indication: chest pain Rate (beats per minute): 57 Rhythm: sinus bradycardia Findings: no PAC, no PVC, no ST depression and no ST elevation Additional Comments: Pre-Hospital EKG: Sinus bradycardia rate of 59, no ST elevation, no ST depression, no PVC, no PAC Blood Pressure Blood Pressure Findings: Elevated blood pressure Blood Pressure Disposition: further management by hospitalist Discharge Plan Visit Data *Final* Discharge Date/Time: 03/15/19 23:18 Chief Complaint: Chest Pain ED Provider: Rey Mccarty Discharge Problem: Substernal chest pain, Hypertension Patient Disposition: Admitted As Inpatient Discharge Instructions Interventions: ED Discharge Assessment Last Done: 03/15/19 23:18 Discharge Problem: Hypertension Qualifiers: Hypertension type: unspecified Qualified Code(s): I10 - Essential (primary) hypertension The scribe's documentation has been prepared under my direction and personally reviewed by me in its entirety. I confirm that the note above accurately reflects all work, treatment, procedures, and medical decision making performed by me.
[2019-03-16] MEDS: DOCUSATE SODIUM 100 MG CAP PO SCH ×2 (08:23→20:24)
[2019-03-16] MEDS: CALCIUM POLYCARBOPHIL 625MG TAB PO SCH ×2 (08:23→20:26)
[2019-03-16] MEDS: CEROVITE ADV FORMULA TAB PO SCH ×2 (08:23→20:25)
[2019-03-16] MEDS: PANTOprazole 40 MG TAB PO SCH (08:23)
[2019-03-16] MEDS ORDERED: AMLODIPINE BESYLATE 5 MG TAB PO SCH (09:00)
[2019-03-16 12:36] LABS: BUN Creatinine Ratio 19.6 (10-20); Blood Urea Nitrogen 22 mg/dl (7-18); Calcium 8.8 mg/dl (8.5-10.1); Carbon Dioxide 31 mmol/L (21-32); Chloride 106 mmol/L (98-107); Creatinine Clr Calc Pharmacy 60.3 ml/min; Est GFR (African American) 72.8; Est GFR (Non-African American) 62.8; Glucose 79 mg/dl (70-99); Sodium 141 mmol/L (136-145)
[2019-03-16 12:40] LABS: Troponin I < 0.015 ng/ml (0-0.045)
[2019-03-16] MEDS ORDERED: LISINOPRIL 10 MG TAB PO SCH (15:00)
--- NOTE | 2019-03-16 15:34 | Hospitalist Progress Note ---
Date of Service March 16, 2019 Assessment & Plan (1) Hypertensive urgency: Patient presenting with hypertensive urgency with blood pressures in the 200s over 90s, with a brief episode of chest pain prior to arrival now resolved. No evidence of end-organ damage at this time. EKG with no ischemic findings, troponin negative. Blood pressure markedly improved with NitroPaste upon admission. Patient reports adequate BP control at home on Amlodipine 2.5mg po daily. Is unclear why he presented all of a sudden with blood pressures so high. Chest x-ray does show mild pulmonary edema and small right pleural effusion- could be secondary to hypertensive urgency -Blood pressure is much improved now -Ideally, an GAIL inhibitor or ARB would be a good option for him but he reports adverse side effects to both in the past -We will increase amlodipine to 10 mg daily -Monitor BP -Appreciate cardiology consultation -Checking echocardiogram (2) Hypertension: Plan as above -Continue amlodipine increased dose to 10 mg daily -He is not on beta-blockers presumably due to bradycardia at rest -Continue doxazosin (3) Chest discomfort: Patient with brief episode of chest discomfort now resolved. No EKG or laboratory evidence for ischemia at present. Possibly secondary to marked elevation in BP now improved. Patient with known CAD s/p ALONSO to LAD in 2007. He denies exertional symptoms at baseline. He follows with Dr. Ba. Troponin negative x3 -Continue telemetry monitoring -Continue ASA 81mg po daily -Continue Crestor 20mg po QOD -Continue to monitor -Checking echocardiogram in the morning -Appreciate cardiology consultation (4) Atrial fibrillation: Patient presently in sinus bradycardia at rates in the 50s-60s. Reports that his HR is typically in the 50's and therefore is not on beta-[place] -No symptoms of dizziness/lightheadedness with this rate. Patient is presently not on anticoagulation due to a previous history of hematuria -Continue Amiodarone QOD -Continue to monitor (5) Dyslipidemia: Chronic -Crestor QOD (6) GERD (gastroesophageal reflux disease): Stable. Chronic -Continue Omeprazole daily (7) BPH (benign prostatic hyperplasia): Chronic. Stable. No symptoms at present\ -Continue Doxazosin -Continue Finasteride (8) Pleural effusion: Small on the right seen on chest x-ray Could be related to hypertensive urgency Not hypoxic -Follow -Consider adding diuretics for improved blood pressure control -Checking echocardiogram (9) CAD (coronary artery disease): With history of ALONSO to the LAD in 2007 -Continue aspirin, statin Not on beta-[place] GAIL inhibitor due to bradycardia and adverse side effects previously as above (10) Somatic dysfunction of cervical region: Has chronic neck stiffness that is being followed by his PCP -Add Voltaren gel (11) DVT prophylaxis: SCDs, teds, ambulation Disposition-remain on telemetry overnight If echocardiogram okay and remains with better blood pressure control tomorrow, can discharge tomorrow Subjective Patient denies any problems. No further chest pain, no headache or lightheadedness. He is tolerating p.o. Blood pressures remain elevated. Telemetry with normal sinus rhythm to sinus bradycardia with rates in the 50s to 60s. I discussed the case with cardiology. The patient tells me that he has been on both lisinopril and losartan in the past with adverse side effects-he cannot remember what the side effects were. Review of Systems Review of Systems: All systems reviewed & are unremarkable except as noted in HPI & below Physical Exam Constitutional: WD/WN, vitals as above Eyes: PERRL, conjunctivae normal, anicteric sclerae ENMT: external ear and nose normal, oropharynx normal Neck: trachea midline, no thyromegaly Respiratory: normal respiratory effort, lungs clear to auscultation Cardiovascular: RRR, no murmur, no edema Gastrointestinal (Abdomen): normal bowel sounds, soft, nontender, no hepatosp lenomegaly Musculoskeletal: Extremities: extremities normal to inspection; no cyanosis and no clubbing Skin: no rashes, warm and dry Neurologic: moves all extremities and awake; no focal motor deficits Psychiatric: A+Ox3, euthymic affect Results & Data Vital Signs (Past 12 Hours) Vital Signs Temp Pulse Pulse Resp BP BP Pulse Ox 03/16/19 15:07 36.5 C 52 L 20 152/76 H 94 03/16/19 11:00 36.7 C 44 L 20 166/73 H 96 03/16/19 09:50 47 L 03/16/19 08:27 55 L 141/58 H 03/16/19 07:00 36.8 C 55 L 18 145/70 H 95 03/16/19 03:36 36.7 C 53 L 20 155/73 H 98 Laboratory Results 03/16/19 Range/Units 11:51 Sodium 141 (136-145) mmol/L Potassium 4.0 (3.5-5.1) mmol/L Chloride 106 (98-107) mmol/L Carbon Dioxide 31 (21-32) mmol/L Anion Gap 4.0 (3-11) BUN 22 H (7-18) mg/dl Creatinine 1.11 (0.6-1.4) mg/dl Est Cr Clr Drug Dosing 60.3 ml/min Est GFR ( Amer) 72.8 Est GFR (Non-Af Amer) 62.8 BUN/Creatinine Ratio 19.6 (10-20) Glucose 79 (70-99) mg/dl Calcium 8.8 (8.5-10.1) mg/dl Troponin I < 0.015 (0-0.045) ng/ml PG Care Time/CCT Total # of Minutes Spent Total Time Spent with Patient: Total time spent is greater than 50% in coordination of care (as documented) at patient's floor/unit and/or counseling patient: (1) BPH (benign prostatic hyperplasia) Lower urinary tract symptom presence: unspecified whether lower urinary tract symptoms present Qualified Code(s): N40.0 - Benign prostatic hyperplasia without lower urinary tract symptoms (2) Atrial fibrillation Atrial fibrillation type: paroxysmal Qualified Code(s): I48.0 - Paroxysmal atrial fibrillation (3) GERD (gastroesophageal reflux disease) Esophagitis presence: esophagitis presence not specified Qualified Code(s): K21.9 - Gastro-esophageal reflux disease without esophagitis (4) Hypertension Hypertension type: unspecified Qualified Code(s): I10 - Essential (primary) hypertension
[2019-03-16] MEDS ORDERED: AMLODIPINE BESYLATE 5 MG TAB PO ONE ×2 (15:35)
--- NOTE | 2019-03-16 15:36 | Cardiology Consultation ---
Date of Consultation March 16, 2019 Assessment & Plan (1) CAD (coronary artery disease): Status post LAD PCI. No definite angina. Atypical symptoms. No evidence for myocardial infarction based on cardiac enzymes. Check echocardiogram. Continue aspirin 81 mg daily indefinitely. High-intensity statin therapy. Not on beta-dallas due to bradycardia while on amiodarone. (2) Status post insertion of drug-eluting stent into left anterior descending (LAD) artery: Anti-platelet therapy in the form of aspirin 81 mg daily indefinitely. (3) Atrial fibrillation: Has reported paroxysmal atrial fibrillation and is on amiodarone as part of an antiarrhythmic approach. Not on anticoagulation due to documented hematuria according to outpatient records. (4) Dyslipidemia: High-intensity statin therapy recommended. (5) Hypertensive urgency: Amlodipine was increased by primary service. Not on beta-dallas due to bradycardia. He did not tolerate Dilip inhibitor and ARB in the past. Titrate medications as appropriate. (6) Disposition: Plan of care discussed with Dr. Santana of the primary hospitalist service. Dr. Ba, his primary recruitment and outreach assistant, will resume his cardiology care tomorrow. 45 minutes spent, with greater than 50% of that time spent counseling patient, and coordinating care. Thank you for allowing me to participate in the care of your patient. Please call for any other questions or concerns. Sincerely, Lionel Hogan M.D. History of Present Illness Reason for Consultation: Chest pain, hypertensive urgency, CAD status post LAD stent Requesting Physician: Dr. Santana Attending Physician: Suri Santana MD History of Present Illness Mr. Fowler is a very pleasant 79-year-old gentleman with a history significant for CAD status post LAD PCI in 2007 at [facility], hypertension, dyslipidemia, and paroxysmal atrial fibrillation on amiodarone. He has not been on anticoagulation therapy for history of hematuria according to outpatient records. His primary recruitment and outreach assistant is Dr. Ba. Yesterday, shortly after eating supper at approximately 5:30 p.m., he was cleaning off the table and developed left-sided chest discomfort described as a squeezing/pulling sensation. Each sensation would last only a few seconds but would intermittently occur for 3-4 minutes before completely subsiding. There is no radiation of the pain and no associated symptoms such as shortness of breath, diaphoresis. He checked his blood pressure and it was 241/140 mmHg. He checked it with another blood pressure cuff and also found the systolic blood pressure to be greater than 200. Earlier that morning, his blood pressure was normal at 127/66mmHg. He had not been experiencing any chest discomfort with exertion prior to this. He denies any recent dyspnea with exertion or other anginal-type symptoms. He does not recall having any angina prior to his 2007 stent. He states that he pr esented feeling played out and underwent testing which led to a cardiac catheterization and eventually PCI. He admits that he does not exercise. He has not had any further chest discomfort since being here. Amlodipine was increased by primary service. He states that his blood pressure typically had been normal at home. Review of systems: As above. Review of systems otherwise negative/unremarkable. Family history: No known premature CAD. Social history: Quit smoking greater than 50 years ago. No alcohol. Lives at home with his . Three children. Unaccompanied. Allergies Allergy/AdvReac Type Severity Reaction Status Date / Time Bactrim Allergy Intermediate RASH Verified 12/09/17 11:17 Sulfa (Sulfonamide Allergy Intermediate RASH Verified 03/15/19 21:09 Antibiotics) sulfamethoxazole Allergy Intermediate RASH Verified 03/15/19 21:09 trimethoprim Allergy Intermediate RASH Verified 03/15/19 21:09 rivaroxaban Allergy Mild SHORTNESS Verified 03/15/19 21:09 OF BREATH amoxicillin Allergy Unknown Unknown Verified 03/15/19 21:09 azithromycin [From Zithromax] AdvReac Intermediate Nausea Verified 03/15/19 21:09 mivacurium AdvReac Mild UPSET Verified 03/15/19 21:09 STOMACH Home Medications Home Medications Medication Instructions Recorded Confirmed Type calcium polycarbophil [Fiber-Tabs] 1 tab PO AMHS 05/30/18 03/15/19 History acetaminophen ER 650 mg 650 mg PO Q12H PRN 02/15/19 03/15/19 History tablet,extended release aspirin 81 mg tablet,delayed 81 mg PO HS tab 02/15/19 03/15/19 History release cholecalciferol (vitamin D3) 1,000 1,000 unit PO AMHS cap 02/15/19 03/15/19 History unit capsule amiodarone 200 mg tablet 200 mg PO Q2D tab 02/27/19 03/15/19 History amlodipine 2.5 mg tablet 2.5 mg PO QAM tab 02/27/19 03/15/19 History diclofenac 1 % topical gel 2 gm TOP QID PRN gm 02/27/19 03/15/19 History docusate sodium 100 mg capsule 100 mg PO AMHS 02/27/19 03/15/19 History doxazosin 4 mg tablet 4 mg PO HS tab 02/27/19 03/15/19 History finasteride 5 mg tablet 5 mg PO HS tab 02/27/19 03/15/19 History nitroglycerin 0.4 mg sublingual See Rx Instructions SL .COMPLEX 02/27/19 03/15/19 History tablet PRN tab omeprazole 20 mg capsule,delayed 20 mg PO QAM cap 02/27/19 03/15/19 History release rosuvastatin 40 mg tablet 20 mg PO Q2D tab 02/27/19 03/15/19 History vit C,Y-Mn-pumru-lutein-zeaxan 1 tab PO AMHS 03/15/19 03/15/19 History [PreserVision AREDS-2] Patient History Medical History Chronic arthritis (Chronic) Cervicalgia (Chronic) Acute bronchitis (Acute) CAD (coronary artery disease) ALONSO to LAD in 2007 at [facility] [place] Atrial fibrillation NO CARDIOVERSION. TAKES AMIODARONE Q2D. BPH (benign prostatic hyperplasia) Cardiac murmur SINCE GERD (gastroesophageal reflux disease) Hyperlipidemia Hypertension Macular degeneration of right eye Surgical History H/O arthroscopy of knee BILATERAL H/O inguinal hernia repair LEFT H/O umbilical hernia repair History of cardiac cath ~2007 WITH 1 STENT (DRUG-ELUTING STENT) DONE AT [facility]. History of carpal tunnel release BILATERAL History of colonoscopy History of laminectomy History of repair of rotator cuff BILATERAL Hx of cataract surgery right Social History Preferred Language: Estonian Communication Ability: Effective Beliefs That Will Affect Care: None Current Living Situation: Spouse Feels Safe at Home: Yes Smoking Status: Former smoker Tobacco Type: cigarettes Second Hand Exposure: No Hx Alcohol Use: Yes Alcohol type: beer Hx Substance Use: No Physical Exam Physical Exam: Gen.: No acute distress. Alert and oriented. HEENT: Anicteric sclera. Neck: No JVD. No bruits. Normal carotid upstrokes bilaterally. Cardiac: PMI was nondisplaced. No ventricular heave. Regular rate and rhythm. Normal S1-S2. 2/6 systolic ejection murmur. No rubs, or gallops. Pulmonary: Clear to auscultation bilaterally without wheezes, rales, or rhonchi. Abdomen: Soft, nontender, nondistended, with normoactive bowel sounds. No bruits noted. Extremities: 2+ radial pulses bilaterally. 2+ posterior tibialis pulses bilaterally. No edema or cyanosis. No palpable cords. Psychiatric: Affect appears appropriate. Chest: Nontender to palpation. Results & Data Vital Signs (Past 12 Hours) Vital Signs Temp Pulse Pulse Resp BP BP Pulse Ox 03/16/19 15:07 36.5 C 52 L 20 152/76 H 94 03/16/19 11:00 36.7 C 44 L 20 166/73 H 96 03/16/19 09:50 47 L 03/16/19 08:27 55 L 141/58 H 03/16/19 07:00 36.8 C 55 L 18 145/70 H 95 03/16/19 03:36 36.7 C 53 L 20 155/73 H 98 Laboratory Results Laboratory Results - last 24 hr 03/15/19 03/15/19 03/16/19 19:19 19:19 04:14 WBC 5.85 RBC 4.46 L Hgb 13.3 L Hct 40.0 L MCV 89.7 MCH 29.8 MCHC 33.3 RDW Std Deviation 47.5 H RDW Coeff of Luis E 14.5 Plt Count 210 MPV 10.8 H Immature Gran % (Auto) 0.2 Neut % (Auto) 65.3 Lymph % (Auto) 22.1 Graham % (Auto) 9.4 Eos % (Auto) 2.7 Baso % (Auto) 0.3 Immature Gran # (Auto) 0.01 Neut # (Auto) 3.82 Lymph # (Auto) 1.29 Graham # (Auto) 0.55 Eos # (Auto) 0.16 Baso # (Auto) 0.02 Sodium 141 Potassium 3.7 Chloride 108 H Carbon Dioxide 26 Anion Gap 7.0 BUN 22 H Creatinine 1.35 Est Cr Clr Drug Dosing 48.5 Est GFR ( Amer) 57.5 Est GFR (Non-Af Amer) 49.6 BUN/Creatinine Ratio 16.0 Glucose 108 H Calcium 8.5 Phosphorus 3.1 Magnesium 2.3 Total Bilirubin 0.3 AST 17 ALT 23 Alkaline Phosphatase 66 Troponin I < 0.015 < 0.015 Total Protein 7.2 Albumin 3.9 Globulin 3.3 Albumin/Globulin Ratio 1.2 Lipase 188 03/16/19 11:51 WBC RBC Hgb Hct MCV MCH MCHC RDW Std Deviation RDW Coeff of Luis E Plt Count MPV Immature Gran % (Auto) Neut % (Auto) Lymph % (Auto) Graham % (Auto) Eos % (Auto) Baso % (Auto) Immature Gran # (Auto) Neut # (Auto) Lymph # (Auto) Graham # (Auto) Eos # (Auto) Baso # (Auto) Sodium 141 Potassium 4.0 Chloride 106 Carbon Dioxide 31 Anion Gap 4.0 BUN 22 H Creatinine 1.11 Est Cr Clr Drug Dosing 60.3 Est GFR ( Amer) 72.8 Est GFR (Non-Af Amer) 62.8 BUN/Creatinine Ratio 19.6 Glucose 79 Calcium 8.8 Phosphorus Magnesium Total Bilirubin AST ALT Alkaline Phosphatase Troponin I < 0.015 Total Protein Albumin Globulin Albumin/Globulin Ratio Lipase Diagnostic Findings Telemetry personally reviewed: Sinus rhythm. No arrhythmia. Sinus bradycardia. ECGs Reviewed: ECG 03/15/2019: Sinus bradycardia 57 bpm. ECG 03/16/2019: Sinus bradycardia 48 bpm. Chest x-ray 03/15/2019: Images personally reviewed. No infiltrate. Medications Administered Current Inpatient Medications Acetaminophen (Tylenol) 650 mg PO Q4H PRN PRN Reason: pain/fever Stop: 04/15/19 00:00 Amiodarone HCl (Cordarone) 200 mg PO Q2D@2100 [facility] Stop: 04/15/19 20:59 Amlodipine Besylate (Norvasc) 10 mg PO QAM [facility] Stop: 04/16/19 08:59 Aspirin (Ecotrin Ectab) 81 mg PO HS [facility] Stop: 04/15/19 20:59 Calcium Polycarbophil (Fibercon) 1 tab PO BID [facility] Stop: 04/15/19 08:59 Last Admin: 03/16/19 08:23 Dose: 1 tab Documented by: Docusate Sodium (Colace) 100 mg PO BID [facility] Stop: 04/15/19 08:59 Last Admin: 03/16/19 08:23 Dose: 100 mg Documented by: Doxazosin Mesylate (Cardura) 4 mg PO HS [facility] Stop: 04/15/19 20:59 Finasteride (Proscar) 5 mg PO HS [facility] Stop: 04/15/19 20:59 Multivitamins/Minerals (Multivitamin W/ Minerals Tab) 1 tab PO BID [facility] Stop: 04/15/19 08:59 Last Admin: 03/16/19 08:23 Dose: 1 tab Documented by: Pantoprazole Sodium (Protonix) 40 mg PO QAM [facility] Stop: 04/15/19 08:59 Last Admin: 03/16/19 08:23 Dose: 40 mg Documented by: Rosuvastatin Calcium (Crestor) 20 mg PO Q2D@2100 [facility] Stop: 04/15/19 20:59 (1) Atrial fibrillation Atrial fibrillation type: paroxysmal Qualified Code(s): I48.0 - Paroxysmal atrial fibrillation
[2019-03-16] MEDS ORDERED: ROSUVASTATIN CALCIUM 20 MG TAB PO SCH (21:00)
[2019-03-16] MEDS ORDERED: FINASTERIDE 5 MG TAB PO SCH (21:00)
[2019-03-16] MEDS ORDERED: ASPIRIN 81 MG ECTAB PO SCH (21:00)
[2019-03-16] MEDS ORDERED: DOXAZosin MESYLATE 4 MG TAB PO SCH (21:00)
[2019-03-16] MEDS ORDERED: AMIODARONE 200 MG TAB PO SCH (21:00)
[2019-03-17] MEDS: CALCIUM POLYCARBOPHIL 625MG TAB PO SCH (07:39)
[2019-03-17] MEDS: CEROVITE ADV FORMULA TAB PO SCH (07:39)
[2019-03-17] MEDS: PANTOprazole 40 MG TAB PO SCH (07:39)
[2019-03-17] MEDS: DOCUSATE SODIUM 100 MG CAP PO SCH (07:39)
--- NOTE | 2019-03-17 08:55 | Cardiology Progress Note ---
Date of Service March 17, 2019 Assessment & Plan (1) CAD (coronary artery disease): The patient had a drug-eluting stent placed in LAD back in 2007. Symptoms at time presentation were not cardiac in origin. Troponin levels undetectable. Echocardiogram notes hyperdynamic left ventricular systolic function without wall motion abnormality. Continue medical management. (2) Status post insertion of drug-eluting stent into left anterior descending (LAD) artery: Continue aspirin. (3) Atrial fibrillation: Remains in sinus rhythm on amiodarone. Does not take long-term anticoagulation as he developed hematuria previously while on treatment. (4) Dyslipidemia: Continue rosuvastatin. (5) Hypertensive urgency: Blood pressure remains somewhat elevated. Would consider another trial with an agent such as losartan. Subjective Mr. Fowler is resting comfortably in the bedside chair without complaints of chest pain or dyspnea. Physical Exam Physical Exam: In general this is a well-developed well-nourished white male in no acute distress. HEENT exam is negative. Neck is supple with full carotid upstrokes. There are no carotid bruits. Jugular venous pressure is flat at 90. There is no thyromegaly. Cardiovascular exam reveals a regular rhythm with a normal S1 and S2. No S3, S4, or murmurs are noted. Lungs are clear without rales, rhonchi, or wheezes. Abdomen is soft and nontender without bruits. Extremities reveal intact radial artery and posterior tibial pulses bilaterally. There is no peripheral edema. Results & Data Vital Signs (Past 12 Hours) Vital Signs Temp Pulse Pulse Resp BP Pulse Ox 03/17/19 07:07 36.6 C 56 L 22 185/78 H 97 03/17/19 03:18 36.5 C 55 L 20 172/76 H 96 03/16/19 23:53 52 L 03/16/19 23:23 36.6 C 54 L 20 177/81 H 95 Diagnostic Findings satellite project site monitor notes normal sinus rhythm. (1) Atrial fibrillation Atrial fibrillation type: paroxysmal Qualified Code(s): I48.0 - Paroxysmal atrial fibrillation
[2019-03-17] MEDS ORDERED: AMLODIPINE BESYLATE 5 MG TAB PO SCH (09:00)
--- NOTE | 2019-03-17 11:50 | Discharge Summary ---
Date of Service March 17, 2019 Admission HPI Per Admitting Provider Mr. Primitivo Fowler is a pleasant 79yo C male with history of HTN, HLP, CAD s/p ALONSO to LAD in 2007, AF on Amiodarone presenting with hypertension. Patient was in his usual state of health during the day today. He ate dinner at 17:30 and shortly after developed left sided chest pressure, described as squeezing, 4/10. He denies diaphoresis, SOB, palpitations, dizziness with the chest pressure. Pain lasted only a few minutes then resolved on its own. He checked his blood pressure at that time and it was markedly elevated at 241/140. Patient called EMS and was transported to [facility]. On arrival here his blood pressure was found to be 207/80. He had 0.5in of Nitropaste placed with improvement in BP. Patient monitors his blood pressure frequently at home - reports it typically is 120-130/60-80. His heart rate is usually in the 50's. He denies recent medication changes or missed doses. He has not been using OTC cold medications or supplements. He denies headache. He has macular degeneration in the right eye with baseline visual field deficit, however reports no change in this. He denies SOB, dizziness, numbness/weakness. He reports feeling well presently with no additional complaints. ER Course: NitroPaste Principal Diagnosis Hypertensive urgency, chest pain Discharge Exam Constitutional WD/WN, vitals as above Eyes PERRL, conjunctivae normal, anicteric sclerae ENMT external ear and nose normal, oropharynx normal Neck trachea midline, no thyromegaly Respiratory normal respiratory effort, lungs clear to auscultation Cardiovascular RRR, no murmur, no edema Gastrointestinal (Abdomen) normal bowel sounds, soft, nontender, no hepatosplenomegaly Musculoskeletal Extremities: extremities normal to inspection; no cyanosis and no clubbing Skin no rashes, warm and dry Neurologic moves all extremities and awake; no focal motor deficits Psychiatric A+Ox3, euthymic affect Discharge Data Allergies Allergy/AdvReac Type Severity Reaction Status Date / Time Bactrim Allergy Intermediate RASH Verified 12/09/17 11:17 Sulfa (Sulfonamide Allergy Intermediate RASH Verified 03/15/19 21:09 Antibiotics) sulfamethoxazole Allergy Intermediate RASH Verified 03/15/19 21:09 trimethoprim Allergy Intermediate RASH Verified 03/15/19 21:09 rivaroxaban Allergy Mild SHORTNESS Verified 03/15/19 21:09 OF BREATH amoxicillin Allergy Unknown Unknown Verified 03/15/19 21:09 azithromycin [From Zithromax] AdvReac Intermediate Nausea Verified 03/15/19 21:09 mivacurium AdvReac Mild UPSET Verified 03/15/19 21:09 STOMACH Consultations Cardiology Procedures Performed Echocardiogram Ordered Studies Chest x-ray Hospital Course (1) Hypertensive urgency: Patient presenting with hypertensive urgency with blood pressures in the 200s over 90s, with a brief episode of chest pain prior to arrival now resolved. No evidence of end-organ damage at this time. EKG with no ischemic findings, troponin negative, renal function normal. Blood pressure markedly improved with NitroPaste upon admission. Patient reports adequate BP control at home on Amlodipine 2.5mg po daily. Is unclear why he presented all of a sudden with blood pressures so high. Chest x-ray does show mild pulmonary edema and small right pleural effusion- could be secondary to hypertensive urgency -Blood pressure is much improved now -Ideally, an GAIL inhibitor or ARB would be a good option for him but he reports adverse side effects to both in the past -His amlodipine was increased to 10 mg daily and he had improved control but did remain with some mildly elevated blood pressures -Monitor BP after discharge at home and with PCP -Appreciate cardiology consultation-echocardiogram was without wall motion abnormalities or other acute issues, he had preserved LV function-no further testing was indicated (2) Hypertension: Plan as above -Continue amlodipine increased dose to 10 mg daily -He is not on beta-blockers presumably due to bradycardia at rest -Continue doxazosin -He cannot tolerate GAIL inhibitors or ARB in the past -Consider adding diuretic on if blood pressure still elevated at follow-up PCP visit within the week (3) Chest discomfort: Patient with brief episode of chest discomfort now resolved. No EKG or laboratory evidence for ischemia at present. Possibly secondary to marked elevation in BP now improved. Patient with known CAD s/p ALONSO to LAD in 2007. He denies exertional symptoms at baseline. He follows with Dr. Ba. Troponin negative x3 -He was ambulating around the [place] without any chest pain or shortness of breath prior to discharge -Continue ASA 81mg po daily -Continue Crestor 20mg po QOD Echocardiogram without wall motion abnormalities Appreciate cardiology consultation-no further testing indicated (4) Atrial fibrillation: Patient continues on telemetry in sinus bradycardia at rates in the 50s- 60s. Reports that his HR is typically in the 50's and therefore is not on beta- [place] -No symptoms of dizziness/lightheadedness with this rate. Patient is presently not on anticoagulation due to a previous history of hematuria -Continue Amiodarone QOD -Follow-up with cardiology as an outpatient (5) Dyslipidemia: Chronic -Crestor QOD (6) GERD (gastroesophageal reflux disease): Stable. Chronic -Continue Omeprazole daily (7) BPH (benign prostatic hyperplasia): Chronic. Stable. No symptoms at present\ -Continue Doxazosin -Continue Finasteride (8) Pleural effusion: Small on the right seen on chest x-ray Could have been related to hypertensive urgency Not hypoxic, no dyspnea -Follow chest x-ray in 1 to 2 weeks as an outpatient to ensure resolution -Consider adding diuretics for improved blood pressure control as above as an outpatient Echocardiogram with normal LV function and with moderate LVH (9) CAD (coronary artery disease): With history of ALONSO to the LAD in 2007 -Continue aspirin, statin Not on beta-[place] GAIL inhibitor due to bradycardia and adverse side effects previously as above (10) Somatic dysfunction of cervical region: Has chronic neck stiffness that is being followed by his PCP -Continue Voltaren gel and follow-up for manipulation with his PCP (11) DVT prophylaxis: SCDs, teds, ambulation were all provided Disposition-stable for discharge to home Total Time Total Time Spent Total Time Spent (In Minutes): Greater than 30 minutes Total Time Includes: Examination of the Patient, Discharge Planning, Medication Reconciliation and Communication With Other Providers (Cardiology Dr. Ba) Discharge Plan Discharge Items Patient Disposition: Home - Self-Care Reason For Visit: HYPERTENSIVE URGENCY Discharge Diagnosis: Hypertensive urgency, chest pain Condition: Good Discharge Goals: Decrease discomfort, Diagnostic testing, Improve disease control, Learn about illness and Therapeutic intervention Activity: Resume your previous activity Lifting: Gradually increase as tolerated Exercise/Sports: Gradually increase as tolerated Driving/Machine Use: No limitations Non-emergency contact: Primary Care Provider and Head Golf Coach Call non-emergency contact if: you have any medication questions, your symptoms worsen, your pain is not controlled, your pain is worsening, your pain is unusual for you and your pain is concerning for you Follow-up/Referrals: Qamar Sanchez, [Primary Care Provider] - (Please follow-up as previously scheduled next week) Diet: Heart Healthy [facility] Provider Instructions: You were admitted due to severely elevated blood pressure and chest pain that was likely related to high blood pressure. Her blood pressure medicine amlodipine was increased to 10 mg once daily. All of her other medications were continued as before. You had an ultrasound of the heart which showed your heart is functioning normally. You were seen by the admin dir and no further testing was deemed necessary. Please check your blood pressure at rest on a daily basis and keep a record of the readings for your doctor at your visit next week. If your blood pressure remains elevated, the next medication that could be added on would be a diuretic/water pill. Please follow-up with your primary care physician within 1 week after discharge as previously scheduled. Prescriptions: New amlodipine [Norvasc] 5 mg Tablet 10 mg PO QAM Qty: 30 RF: 0 Continued acetaminophen [Arthritis Pain Relief (acetam)] 650 mg tablet extended release 650 mg PO Q12H PRN (Reason: Pain) RF: 0 amiodarone 200 mg tablet 200 mg PO Q2D RF: 0 diclofenac sodium 1 % gel 2 gm TOP QID PRN (Reason: Pain) RF: 0 doxazosin 4 mg tablet 4 mg PO HS RF: 0 finasteride 5 mg tablet 5 mg PO HS RF: 0 nitroglycerin [Nitrostat] 0.4 mg tablet, sublingual See Patient Comments mg SL .COMPLEX PRN (Reason: chest pain) RF: 0 omeprazole 20 mg capsule,delayed release(DR/EC) 20 mg PO QAM RF: 0 rosuvastatin 40 mg tablet 20 mg PO Q2D RF: 0 calcium polycarbophil [Fiber-Tabs] 625 mg Tablet 1 tab PO AMHS RF: 0 aspirin [Aspirin Low Dose] 81 mg tablet,delayed release (DR/EC) 81 mg PO HS RF: 0 cholecalciferol (vitamin D3) [Vitamin D3] 1,000 unit capsule 1,000 unit PO AMHS RF: 0 docusate sodium [Stool Softener] 100 mg capsule 100 mg PO AMHS RF: 0 PreserVision AREDS-2 [id number] Capsule 1 tab PO AMHS RF: 0 Discontinued amlodipine 2.5 mg tablet 2.5 mg PO QAM RF: 0 Stand-Alone Forms: Call Back Authorization, [facility] Discharge Orders: Discharge Order (Routine); Ordered 03/17/19 Ordered By: Suri Santana Admission Data Admit Date/Time: 03/15/19 22:32 Attending Provider: Suri Sanatna Admit Provider: Merle Whitmore Primary Care Provider: Qamar Sanchez Other Providers: Merle Whitmore ; Kamron Hogan Service: Telemetry Medical Other Pending Studies at Discharge: No
== END 2019-03-17 12:34 | disposition home or self-care (01) ==
LOC: 2W 18:56 → ED 18:56 → SUATTDRO 22:32 → 2W 23:18